=== PATIENT | female | born 1995 | race Caucasian/White ===

== ENCOUNTER → 2016-04-29 | Outpatient (CLI) | payer MEDICAID | LOC: M LAB 13:11 | PROVIDERS: ATTEND Obstetrics & Gynecology | DX: N91.1 Secondary amenorrhea (principal) ==

== ENCOUNTER → 2016-06-10 | Outpatient (CLI) | payer MEDICAID, OTHER | LOC: M LAB 11:57 | PROVIDERS: ATTEND Obstetrics & Gynecology | DX: N91.1 Secondary amenorrhea (principal) ==

== ENCOUNTER → 2016-07-08 | Outpatient (CLI) | payer OTHER ==
[2016-07-08 13:40] LABS: HIV SCREEN CENTAUR NEGATIVE (NEGATIVE)
[2016-07-08 14:06] LABS: BASO % 0.1 % (0.0-1.0); EOS # 0.1 K/mm3 (0.0-0.50); EOS % 1.4 % (0.0-3.0); LARGE UNSTAINED CELL # 0.2 K/mm3 (0.0-0.4); LARGE UNSTAINED CELL % 1.6 % (0.0-4.0); LYMPH # 2.3 K/mm3 (1.5-6.5); LYMPH % 20.6 % (24.0-44.0); MEAN CORPUSCULAR HEMOGLOBIN 29.5 pg (27.0-33.0); MEAN CORPUSCULAR HGB CONC 33.3 g/dl (32.0-36.5); MEAN CORPUSCULAR VOLUME 88.4 fl (80.0-96.0); MONO # 0.5 K/mm3 (0.0-0.8); MONO % 4.5 % (0.0-5.0); NEUTROPHILS # 7.3 K/mm3 (1.8-7.7); NEUTROPHILS % 71.8 % (36.0-66.0); PLATELET COUNT, AUTOMATED 366 k/mm3 (150-450); RED CELL DISTRIBUTION WIDTH 12.9 % (11.5-14.5)
[2016-07-11 10:18] LABS: HBsAg Prenatal NEGATIVE (NEGATIVE)
[2016-07-11 10:18] LABS: WHITE BLOOD COUNT 10.2 K/mm3 (4.0-10.0)
== END ==
LOC: M LAB 11:33
PROVIDERS: ATTEND Advanced Practice Midwife
DX: Z34.81 Encounter for supervision of other normal pregnancy, first trimester (principal); Z36 Encounter for antenatal screening of mother

== ENCOUNTER → 2016-09-28 | Outpatient (CLI) | payer OTHER | LOC: M SMT 11:03 | PROVIDERS: ATTEND Advanced Practice Midwife | DX: Z36 Encounter for antenatal screening of mother (principal); Z13.79 Encounter for other screening for genetic and chromosomal anomalies ==

== ENCOUNTER → 2016-10-03 | Outpatient (CLI) | payer OTHER ==
[~2016-10-03] MED LIST: PRENTAB9 PO
--- NOTE | 2016-10-04 03:54 | REP ---
Clinical: Anatomical evaluation. Comparison: None . Findings: Examination demonstrates a single live intrauterine in cephalic presentation. motion is identified by technologist. Placenta is noted posteriorly and grade zero without evidence for placenta previa or abruption. Amniotic fluid volume is normal. Cervix measures 5.3 cm in length and appears closed. No evidence for nuchal cord. Gestational age by LMP 19 weeks 3 days with VENU 02/24/2017 . Gestational age by current measurements 19 weeks 0 days with VENU 02/27/2017 . FHR equals 137 beats per minute. BPD 4.2 cm 18 weeks 5 days HC 16.1 cm 18 weeks 6 days AC 13.7 cm 19 weeks 1 day FL 2.9 cm 18 weeks 6 days HL 2.9 cm 19 weeks 2 days HC/AC ratio 1.18 Estimated weight 269 grams ( 32nd percentile). Anatomical assessment demonstrates normal structures including cranium, choroid plexus, cavum, cerebellum/posterior fossa, facial features, lungs, diaphragm, stomach, cord insertion/three-vessel cord, kidneys/bladder, spine, and extremities. Limited evaluation of the heart/ventricular outflow tracts noted. Impression: 1. Single live intrauterine in cephalic presentation demonstrating appropriate interval growth. 2. Limited evaluation of the heart and ventricular outflow tracts may warrant reevaluation and follow-up. Signed by Chava Stubbs MD 10/04/2016 03:45 A
== END ==
LOC: M RAD 14:07
PROVIDERS: ATTEND Advanced Practice Midwife
DX: Z34.82 Encounter for supervision of other normal pregnancy, second trimester (principal); Z36 Encounter for antenatal screening of mother; Z3A.18 18 weeks gestation of pregnancy

== ENCOUNTER 2016-10-12 20:32 | Outpatient (CLI) | payer OTHER ==
[~2016-10-12] VITALS: Ht 149.9 cm; Wt 95.0 kg
[2016-10-12] MEDS ORDERED: PRENTAB9 PO (20:40)
[2016-10-12 21:09] VITALS: BP 101/51
== END 2016-10-12 21:30 | disposition home or self-care (01) ==
LOC: M LDO 20:32
PROVIDERS: ATTEND Advanced Practice Midwife
DX: O26.892 Other specified pregnancy related conditions, second trimester (principal); R10.31 Right lower quadrant pain; R10.2 Pelvic and perineal pain; Z3A.20 20 weeks gestation of pregnancy; Z88.2 Allergy status to sulfonamides

== ENCOUNTER → 2016-10-26 | Outpatient (REF) | payer OTHER | LOC: M LAB REF 17:45 | PROVIDERS: ATTEND Advanced Practice Midwife | DX: Z34.82 Encounter for supervision of other normal pregnancy, second trimester (principal); Z36 Encounter for antenatal screening of mother ==

== ENCOUNTER → 2016-10-27 | Outpatient (REF) | payer OTHER | LOC: M LAB REF 16:18 | PROVIDERS: ATTEND Physician Assistant | DX: H65.01 Acute serous otitis media, right ear (principal) ==

== ENCOUNTER → 2016-11-04 | Outpatient (CLI) | payer OTHER ==
--- NOTE | 2016-11-04 12:20 | REP ---
OB ULTRASOUND: Real-time sonographic evaluation of the gravid uterus is performed. There is a single living intrauterine gestation with an estimated gestational age of 24 weeks 0 days based on LMP with EDC 02/24/2017. Biometry and Growth: BPD 57 mm = 23 weeks 3 days, 35th percentile HC 216 mm = 23 weeks 4 days, 38th percentile AC 193 mm = 24 weeks 0 days, 50th percentile FL 41 mm = 23 weeks 2 days, 31st percentile HC/AC ratio 1.12 within normal range. Estimated weight 615 grams, 35th percentile. SEEN/GROSSLY UNREMARKABLE Lateral ventricles Yes Posterior fossa Yes Upper lip Yes Four-chamber heart No LVOT Yes RVOT Yes Stomach Yes Cord insertion Yes Three vessel cord Yes Kidneys Yes Bladder Yes Spine Yes Cervical length: Closed and measures 5.2 cm in length. heart rate: 141 beats per minute. position: Vertex. Placenta: Posterior and grade 0 with no previa or abruption. Amniotic fluid: Within normal limits. Signed by Bishop Calvert MD 11/04/2016 12:21 P
== END ==
LOC: M RAD 10:45
PROVIDERS: ATTEND Advanced Practice Midwife
DX: Z34.82 Encounter for supervision of other normal pregnancy, second trimester (principal); Z36 Encounter for antenatal screening of mother; Z3A.24 24 weeks gestation of pregnancy

== ENCOUNTER → 2016-11-09 | Outpatient (REF) | payer OTHER | LOC: M LAB REF 13:05 | PROVIDERS: ATTEND Advanced Practice Midwife | DX: Z34.82 Encounter for supervision of other normal pregnancy, second trimester (principal); Z36 Encounter for antenatal screening of mother ==

== ENCOUNTER → 2016-11-23 | Outpatient (CLI) | payer OTHER ==
[2016-11-23 13:26] LABS: MEAN CORPUSCULAR HEMOGLOBIN 30.9 pg (27.0-33.0); MEAN CORPUSCULAR HGB CONC 33.3 g/dl (32.0-36.5); MEAN CORPUSCULAR VOLUME 92.6 fl (80.0-96.0); RED CELL DISTRIBUTION WIDTH 13.6 % (11.5-14.5); WHITE BLOOD COUNT 10.4 K/mm3 (4.0-10.0)
== END ==
LOC: M SMT 10:18
PROVIDERS: ATTEND Advanced Practice Midwife
DX: Z34.82 Encounter for supervision of other normal pregnancy, second trimester (principal); Z36 Encounter for antenatal screening of mother

== ENCOUNTER → 2016-12-05 | Outpatient (CLI) | payer OTHER ==
--- NOTE | 2016-12-05 14:17 | REP ---
OB ULTRASOUND: Real-time sonographic evaluation of gravid uterus performed. There is a single living intrauterine gestation. The estimated gestational age is 28 weeks 3 days, EDC 02/24/2017. Today's measurements indicate appropriate growth. BPD 72 mm = 29 weeks 0 days, 61st percentile HC 264 mm = 28 weeks 5 days, 58th percentile AC 242 mm = 28 weeks 3 days, 51st percentile Femur length 55 mm = 28 weeks 6 days, 61st percentile HC/AC ratio 1.09 within normal range. Estimated weight 1263 grams, 48th percentile. Cervix closed 4 cm in length. heart rate 139 beats per minute. Amniotic fluid within normal limits, CAMILA 16.3 within normal range of 9.3-22.9. S/D ratio 2.95 within normal range. RI 0.66 within normal range. SEEN/GROSSLY UNREMARKABLE Lateral ventricles No Posterior fossa Yes Upper lip Yes Four-chamber heart Yes LVOT Yes RVOT No Stomach Yes Cord insertion No Three vessel cord No Kidneys Yes Bladder Yes Spine Yes position: Vertex. Placenta: Posterior and grade 1 with no previa or abruption. Signed by Bishop Calvert MD 12/05/2016 04:09 P
== END ==
LOC: M RAD 11:16
PROVIDERS: ATTEND Advanced Practice Midwife
DX: Z34.82 Encounter for supervision of other normal pregnancy, second trimester (principal); Z36 Encounter for antenatal screening of mother; Z3A.28 28 weeks gestation of pregnancy

== ENCOUNTER → 2016-12-08 | Outpatient (REF) | payer OTHER | LOC: M LAB REF 13:06 | PROVIDERS: ATTEND Advanced Practice Midwife | DX: Z34.82 Encounter for supervision of other normal pregnancy, second trimester (principal); Z36 Encounter for antenatal screening of mother ==

== ENCOUNTER 2016-12-13 19:36 | Outpatient (CLI) | payer OTHER ==
[~2016-12-13] VITALS: Ht 149.9 cm; Wt 92.0 kg
[2016-12-13 19:45] VITALS: BP 115/59
== END 2016-12-13 20:48 | disposition home or self-care (01) ==
LOC: M LDO 19:36
PROVIDERS: ATTEND Advanced Practice Midwife
DX: O36.8130 Decreased fetal movements, third trimester, not applicable or unspecified (principal); Z3A.29 29 weeks gestation of pregnancy; Z88.2 Allergy status to sulfonamides

== ENCOUNTER 2016-12-26 11:54 | Outpatient (CLI) | payer OTHER ==
[~2016-12-26] VITALS: Ht 149.9 cm; Wt 97.0 kg
[2016-12-26 12:23] VITALS: BP 124/58
== END 2016-12-26 14:35 | disposition home or self-care (01) ==
LOC: M LDO 11:54
PROVIDERS: ATTEND Obstetrics & Gynecology
DX: O26.853 Spotting complicating pregnancy, third trimester (principal); Z3A.31 31 weeks gestation of pregnancy; Z88.2 Allergy status to sulfonamides

== ENCOUNTER → 2017-01-24 | Outpatient (CLI) | payer OTHER ==
--- NOTE | 2017-01-25 04:05 | REP ---
Clinical: Growth evaluation. Comparison: 12/05/2016 . Findings: Examination demonstrates a single live intrauterine in cephalic presentation. motion is identified by technologist. Placenta is noted posteriorly and grade II without evidence for placenta previa or abruption. Amniotic fluid volume is normal. Cervix measures 3.3 cm in length and appears closed. No evidence for nuchal cord. Gestational age by LMP 35 weeks 4 days with VENU 02/24/2017 . Gestational age by current measurements 36 weeks 2 days with VENU 02/19/2017 . FHR equals 133 beats per minute. BPD 8.8 cm of 35 weeks 4 days HC 33.0 37 weeks 4 days AC 31.9 35 weeks 6 days FL 7.2 36 weeks 6 days HL 6.1 35 weeks 2 days HC/AC ratio 1.03 Estimated weight 2890 grams ( 61st percentile). Impression: Single live advanced gestation in cephalic presentation demonstrating appropriate interval growth. No gross abnormalities are identified. Estimated weight within normal range. Signed by Chava Stubbs MD 01/25/2017 03:56 A
== END ==
LOC: M RAD 11:29
PROVIDERS: ATTEND Advanced Practice Midwife
DX: O99.213 Obesity complicating pregnancy, third trimester (principal); E66.9 Obesity, unspecified; Z3A.35 35 weeks gestation of pregnancy

== ENCOUNTER → 2017-01-27 | Outpatient (REF) | payer OTHER | LOC: M LAB REF 13:23 | PROVIDERS: ATTEND Advanced Practice Midwife | DX: Z34.83 Encounter for supervision of other normal pregnancy, third trimester (principal); Z36.85 Encounter for antenatal screening for Streptococcus B ==

== ENCOUNTER → 2017-02-03 | Outpatient (REF) | payer OTHER | LOC: M LAB REF 16:55 | PROVIDERS: ATTEND Obstetrics & Gynecology | DX: Z34.83 Encounter for supervision of other normal pregnancy, third trimester (principal); Z36.9 Encounter for antenatal screening, unspecified ==

== ENCOUNTER 2017-02-26 23:12 | Outpatient (CLI) | payer OTHER ==
[~2017-02-26] VITALS: Ht 149.9 cm; Wt 101.0 kg
== END 2017-02-27 00:20 | disposition home or self-care (01) ==
LOC: M LDO 23:12
PROVIDERS: ATTEND Specialist
DX: O47.1 False labor at or after 37 completed weeks of gestation (principal); Z3A.40 40 weeks gestation of pregnancy; Z88.2 Allergy status to sulfonamides

== ENCOUNTER 2017-03-03 14:35 | Inpatient (IN) | payer OTHER ==
[2017-03-03] VITALS (15 sets, daily range): BP systolic 98–126; BP diastolic 48–89
[~2017-03-03] VITALS: Ht 149.9 cm; Wt 10.0 kg
[2017-03-03 16:04] LABS: BASO % 0.2 % (0.0-1.0); EOS # 0.1 10^3/uL (0.0-0.50); EOS % 0.7 % (0.0-3.0); IMMATURE GRANULOCYTE % 0.6 % (0-0); LYMPH # 2.2 10^3/uL (1.5-6.5); LYMPH % 22.6 % (24.0-44.0); MEAN CORPUSCULAR HEMOGLOBIN 27.5 pg (27.0-33.0); MEAN CORPUSCULAR VOLUME 85.8 fl (80.0-96.0); MONO # 0.8 10^3/uL (0.0-0.8); MONO % 8.1 % (0.0-5.0); NEUTROPHILS # 6.6 10^3/uL (1.8-7.7); NEUTROPHILS % 67.8 % (36.0-66.0); PLATELET COUNT, AUTOMATED 274 10^3/uL (150-450); WHITE BLOOD COUNT 9.7 10^3/uL (4.0-10.0)
[2017-03-03] MEDS ORDERED: OXYTOCIN 30 UNITS IN 0.9% NaCl 500ML IV BAG (J2590) As Ordered ONE (16:27)
[2017-03-03] MEDS ORDERED: OXYTOCIN DRIP 30 UNITS in APPROPRIATE DILUENT 1 EA IV SCH (16:30)
--- NOTE | 2017-03-03 16:57 | HPE ---
DATE OF ADMISSION: 03/03/2017 REASON FOR ADMISSION: Induction of labor. HISTORY OF THE PRESENT ILLNESS: Ms. Gonzales is a 21-year-old 1 who presents at 41 weeks and 0 days estimated gestational age by her last menstrual period, confirmed by a first trimester ultrasound for induction of labor. Her course has been unremarkable. She initiated care in her first trimester and has been appropriate throughout. PAST MEDICAL HISTORY: None. PAST SURGICAL HISTORY: None. PAST OBSTETRICAL HISTORY: She is a 1. MEDICATIONS: Her medications include vitamins. ALLERGIES: She has allergies to SULFA. SOCIAL HISTORY: Denies any alcohol, tobacco or drug use during her . PHYSICAL EXAMINATION: Her vital signs are stable. She is afebrile. She has a category 1 heart rate tracing. General appearance is well appearing. No acute distress. Her lungs are clear to auscultation bilaterally. Cardiovascular: Heart regular rate and rhythm. Her abdomen is gravid, estimated weight 3700 grams. Cervical Exam: She was 3 cm dilated, 80% effaced, -3 station. LABORATORY: Blood type is O positive. Antibody screen is negative. Rubella is immune. RPR is nonreactive. Hepatitis surface antigen is negative. HIV is negative. Hepatitis C is nonreactive. Chlamydia and gonorrhea screens are negative. She had a normal 1-hour Glucola, and she is GBS negative. ASSESSMENT: 1. Ms. Gonzales is a 21-year-old 1 at 41 weeks 0 days estimated gestational age, here for induction of labor for postdates. 2. Reassuring status. PLAN: 1. Admit to labor and delivery. CBC, RPR, type and screen. 2. Patient thoroughly counseled in regards to induction of labor. I have discussed medications, as well as procedures performed in labor and delivery. She has also been verbally consented for emergency surgery, blood products, anesthesia and desires to proceed with admission. 3. Will start induction with Pitocin.
[2017-03-03] MEDS: LR 1,000 ML IV SCH (18:14)
[2017-03-03] MEDS ORDERED: BUTORPHANOL 2 MG/ML INJ (J0595) IV ONE (22:45)
[2017-03-03] MEDS ORDERED: PROMETHAZINE INJ 25 MG/ML VIAL (J2550) IV PRN (22:45)
[2017-03-04] VITALS (44 sets, daily range): BP systolic 85–148; BP diastolic 48–87
[2017-03-04] MEDS ORDERED: OXYTOCIN DRIP 30 UNITS in APPROPRIATE DILUENT 1 EA IV SCH (01:30)
[2017-03-04] MEDS ORDERED: miSOPROStol 50 MCG 1/2 TAB (S0191) PO SCH ×2 (01:30→04:45)
[2017-03-04] MEDS ORDERED: ACETAMINOPHEN 500 MG TAB PO PRN (02:30)
[2017-03-04] MEDS: LR 1,000 ML IV SCH ×4 (07:24→21:14)
[2017-03-04] MEDS ORDERED: FENTANYL 2MCG/ML ROPIVACAINE 0.2% IN 0.9% NACL 200ML IVBAG As Ordered ONE (15:44)
[2017-03-04] MEDS ORDERED: ONDANSETRON 4MG/2ML VIAL (J2405) As Ordered ONE ×2 (15:58→20:27)
[2017-03-04] MEDS ORDERED: ePHEDrine SULFATE 25 MG/5 ML(5MG/ML) SYRINGE IV PRN (16:45)
[2017-03-04] MEDS ORDERED: diphenhydrAMINE INJ 50MG/ML VIAL (J1200) IV PRN (16:45)
[2017-03-04] MEDS ORDERED: LACTATED RINGER'S 1000 ML IV PRN (16:45)
[2017-03-04] MEDS ORDERED: REFRIGERATOR IV KEYS XX PRN (16:45)
[2017-03-04] MEDS ORDERED: EPIDURAL/PCA KEYS XX PRN (16:45)
[2017-03-04] MEDS ORDERED: FENTANYL/ROPIVACAINE/NACL BAG 200 ML EPIDURAL SCH (16:45)
[2017-03-04] MEDS ORDERED: EPIDURAL COMMENT XX SCH (16:45)
[2017-03-04] MEDS ORDERED: NALOXONE INJ 0.4 MG/1 ML VIAL (J2310) IV PRN ×3 (16:45→20:45)
[2017-03-04] MEDS ORDERED: ONDANSETRON 4MG/2ML VIAL (J2405) IV PRN ×2 (16:45→21:15)
[2017-03-04] MEDS ORDERED: ONDANSETRON 4MG/2ML VIAL (J2405) IV ONE (17:15)
[2017-03-04] MEDS ORDERED: BICITRA 30ML SOLN UDC PO ONE (19:30)
[2017-03-04] MEDS ORDERED: LIDOCAINE PRES-FREE 2% 10ML AMP As Ordered ONE (20:00)
[2017-03-04] MEDS ORDERED: KETOROLAC 60 MG/2 ML VIAL (J1885) As Ordered ONE (20:27)
[2017-03-04] MEDS ORDERED: OXYTOCIN INJ 10 UNITS/ML VIAL (J2590) As Ordered ONE (20:32)
[2017-03-04] MEDS ORDERED: MORPHINE PRES-FREE INJ 10 MG/10 ML VIAL (J2274) As Ordered ONE (20:35)
[2017-03-04] MEDS ORDERED: NALBUPHINE HCL 10 MG/ML AMP (J2300) IV PRN (20:45)
[2017-03-04] MEDS ORDERED: METOCLOPRAMIDE INJ 10MG/2ML VIAL (J2765) IV PRN (20:45)
[2017-03-04] MEDS ORDERED: MEPERIDINE 50 MG/ML 1ML VIAL (J2175) As Ordered ONE (20:50)
[2017-03-04] MEDS ORDERED: RHOGAM 300 MCG (1500 IU) INJ (J2790) IM SCH (21:15)
[2017-03-04] MEDS ORDERED: MEASLES,MUMPS,RUBELLA VACCINE INJ (MMR-II) (90707) SC SCH (21:15)
[2017-03-04] MEDS ORDERED: PERCOCET 5MG/325MG TAB PO PRN (21:15)
[2017-03-04] MEDS ORDERED: DOCUSATE SODIUM 100 MG CAP PO PRN (21:15)
[2017-03-04] MEDS ORDERED: OXYTOCIN DRIP 30 UNITS in APPROPRIATE DILUENT 1 EA IV ONE (21:15)
[2017-03-04] MEDS ORDERED: MOM 30ML SUSPENSION UDC PO PRN (21:15)
[2017-03-04] MEDS ORDERED: fentaNYL 100 MCG/2 ML INJECTION (J3010) IV PRN (21:30)
[2017-03-04] MEDS: PERCOCET 5MG/325MG TAB PO PRN (23:53)
[2017-03-05] VITALS (8 sets, daily range): BP systolic 100–123; BP diastolic 52–62
[2017-03-05] MEDS: KETOROLAC 30 MG/ML VIAL (J1885) IV SCH ×4 (02:11→21:42)
--- NOTE | 2017-03-05 06:14 | RO ---
DATE OF OPERATION: 03/04/2017 PREOPERATIVE DIAGNOSIS: Arrest of dilation. POSTOPERATIVE DIAGNOSIS: Arrest of dilation. PROCEDURE PERFORMED: Primary lower transverse section. SURGEON: Claudia Mcmillan MD ASSISTANTS: Eligio Lewis MD ANESTHESIA: Epidural. ESTIMATED BLOOD LOSS: 600 mL. INTRAVENOUS FLUIDS: 1100 mL of lactated Ringer solution. URINE OUTPUT: 125 mL. PREOPERATIVE ANTIBIOTICS: 2 grams of Ancef. SPECIMENS: Cord blood. OPERATIVE FINDINGS: Liveborn female , score 8/9 and weight was 8 pounds 7 ounces or 3830 grams. DESCRIPTION OF OPERATION: After informed consent was obtained and written consent was reviewed, the patient was brought to the operating room where she was prepped and draped in a normal sterile fashion. A Fischer catheter that had previously been set was placed and set to gravity. A time-out in operating room was then performed, identifying the patient, procedure to be performed, as well as drug allergies. Anesthesia was tested and deemed to be adequate. A Pfannenstiel skin incision was then made and carried down to the underlying rectus fascia. The fascia was scored and this incision was extended bilaterally. The fascia was then dissected off the underlying rectus muscles both superiorly and inferiorly. The rectus muscles were the in the midline. The peritoneum was then entered. The vesicouterine peritoneum was then identified, was tented and excised to create a bladder flap. A bladder blade was then placed to retract back the bladder. A curvilinear incision was then made in the lower uterine segment. Uterine incision was then extended. head was brought to the level of the incision atraumatically, followed delivery of the shoulders and corpus. Cord was clamped times two. Infant was brought over taken over to the warmer with a good cry. Cord blood was obtained. Placenta was then delivered grossly intact. The uterus was then exteriorized and cleared of all clots and debris. The uterine incision was then closed in two layers using #0 Vicryl, first layer in a running locking fashion, followed by a second layer for imbrication in a running nonlocking fashion. The abdomen was suctioned. The uterus was returned to the patient's abdomen. Uterine incisions were inspected and also noted to be hemostatic. The anterior peritoneum was then reapproximated with #3-0 Vicryl. Rectus muscles were then reapproximated with #3-0 Vicryl. The fascia was then closed with #0 Vicryl in a running nonlocking fashion. The subcutaneous tissue was then irrigated and suctioned. Subcutaneous tissue was then reapproximated. Several subdermal stitches were placed with #3-0 Vicryl and the skin was closed with #4-0 Monocryl in a subcuticular fashion. The incision was then cleaned and dry. Mastisol was applied above and below the incision. Steri-Strips were applied over the incision. The incision was then dressed. The patient was then taken to recovery in stable condition. Counts were correct.
[2017-03-05 07:05] LABS: MEAN CORPUSCULAR HEMOGLOBIN 27.1 pg (27.0-33.0); MEAN CORPUSCULAR HGB CONC 31.4 g/dl (32.0-36.5); MEAN CORPUSCULAR VOLUME 86.1 fl (80.0-96.0); PLATELET COUNT, AUTOMATED 225 10^3/uL (150-450); RED CELL DISTRIBUTION WIDTH 15.2 % (11.5-14.5); WHITE BLOOD COUNT 12.4 10^3/uL (4.0-10.0)
[2017-03-05] MEDS: LR 1,000 ML IV SCH ×2 (08:39→13:49)
[2017-03-05] MEDS: PRENATAL VITAMINS CHEWABLE TABLET PO SCH (08:39)
[2017-03-05] MEDS: FERROUS SULFATE 325MG TAB PO SCH (08:39)
[2017-03-05] MEDS ORDERED: IBUP1TAB7 PO (08:48)
[2017-03-05] MEDS ORDERED: PERCOCET PO (08:49)
[2017-03-05] MEDS: PERCOCET 5MG/325MG TAB PO PRN (13:46)
[2017-03-06] MEDS: PERCOCET 5MG/325MG TAB PO PRN (04:12)
[2017-03-06] MEDS ORDERED: IBUPROFEN 800 MG TAB PO SCH (05:30)
[2017-03-06 06:15] VITALS: BP 113/68
[2017-03-06] MEDS: PRENATAL VITAMINS CHEWABLE TABLET PO SCH (08:29)
[2017-03-06] MEDS: FERROUS SULFATE 325MG TAB PO SCH (08:29)
[2017-03-06] MEDS ORDERED: OXYC1TAB23 PO (09:39)
[2017-03-06] MEDS ORDERED: MILKSUS PO (09:39)
[2017-03-06] MEDS ORDERED: FERR1TAB8 PO (09:39)
[2017-03-06] MEDS ORDERED: COLA100C5 PO (09:39)
== END 2017-03-06 11:20 | disposition home or self-care (01) | DRG 540 ==
LOC: M LDI 14:35 → M OBS 03-04 23:00
PROVIDERS: ADMIT Obstetrics & Gynecology; ATTEND Obstetrics & Gynecology
PROC: 3E033VJ Introduction of Other Hormone into Peripheral Vein, Percutaneous Approach (ICD-10-PCS; 2017-03-04)
PROC: 10D00Z1 Extraction of Products of Conception, Low, Open Approach (ICD-10-PCS; principal; 2017-03-04 19:55)
DX: O48.0 Post-term pregnancy (principal); O62.0 Primary inadequate contractions; Z37.0 Single live birth; Z3A.41 41 weeks gestation of pregnancy; Z88.2 Allergy status to sulfonamides

== ENCOUNTER → 2017-10-30 | Outpatient (CLI) | payer OTHER ==
[2017-10-30 16:01] LABS: BASO % 0.1 % (0.0-1.0); EOS # 0.1 10^3/uL (0.0-0.50); EOS % 1.1 % (0.0-3.0); HEMATOCRIT 31.8 % (36.0-47.0); HEMOGLOBIN 10.6 g/dl (12.0-15.5); IMMATURE GRANULOCYTE % 0.4 % (0-3.0); LYMPH # 2.2 10^3/uL (1.5-6.5); LYMPH % 21.5 % (24.0-44.0); MEAN CORPUSCULAR HEMOGLOBIN 28.9 pg (27.0-33.0); MEAN CORPUSCULAR HGB CONC 33.3 g/dl (32.0-36.5); MEAN CORPUSCULAR VOLUME 86.6 fl (80.0-96.0); MONO # 0.7 10^3/uL (0.0-0.8); MONO % 6.7 % (0.0-5.0); NEUTROPHILS % 70.2 % (36.0-66.0); PLATELET COUNT, AUTOMATED 269 10^3/uL (150-450); RED BLOOD COUNT 3.67 10^6/uL (4.00-5.40); RED CELL DISTRIBUTION WIDTH 14.9 % (11.5-14.5)
[2017-10-30 17:21] LABS: CHLAMYDIA DNA AMPLIFICATION NEGATIVE (NEGATIVE); GC DNA AMPLIFICATION NEGATIVE (NEGATIVE)
[2017-11-01 09:15] LABS: RUBELLA IgG QUALITATIVE IMMUNE (IMMUNE)
[2017-11-01 09:31] LABS: HBsAg Prenatal NEGATIVE (NEGATIVE)
[2017-11-01 09:45] LABS: HEPATITIS C VIRUS ABY INDEX < 0.0 INDEX (<0.8)
[2017-11-01 09:46] LABS: HIV 1&2 SCREEN CENTAUR NEGATIVE (NEGATIVE)
== END ==
LOC: M LAB 15:08
DX: Z34.81 Encounter for supervision of other normal pregnancy, first trimester (principal); Z3A.10 10 weeks gestation of pregnancy
CPT/HCPCS: 86762

== ENCOUNTER → 2017-11-23 | Outpatient (CLI) | payer OTHER | LOC: M SMT 13:38 | DX: Z36.89 Encounter for other specified antenatal screening (principal) | CPT/HCPCS: 36415 ==

== ENCOUNTER → 2017-11-28 | Outpatient (REF) | payer OTHER | LOC: M LAB REF 13:07 | DX: Z34.82 Encounter for supervision of other normal pregnancy, second trimester (principal); Z3A.00 Weeks of gestation of pregnancy not specified | CPT/HCPCS: 87186 ==

== ENCOUNTER → 2017-12-04 | Outpatient (CLI) | payer OTHER | LOC: M RAD 14:24 | DX: O34.211 Maternal care for low transverse scar from previous cesarean delivery (principal); Z3A.18 18 weeks gestation of pregnancy | CPT/HCPCS: 76811 ==

== ENCOUNTER → 2017-12-27 | Outpatient (REF) | payer OTHER | LOC: M LAB REF 09:14 | DX: Z34.82 Encounter for supervision of other normal pregnancy, second trimester (principal); Z36.89 Encounter for other specified antenatal screening | CPT/HCPCS: 87086 ==

== ENCOUNTER → 2017-12-28 | Outpatient (CLI) | payer OTHER | LOC: M RAD 08:38 | DX: Z36.9 Encounter for antenatal screening, unspecified (principal); O34.219 Maternal care for unspecified type scar from previous cesarean delivery; Z3A.22 22 weeks gestation of pregnancy | CPT/HCPCS: 76816 ==

== ENCOUNTER → 2018-01-24 | Outpatient (REF) | payer OTHER | LOC: M LAB REF 12:48 | DX: O34.219 Maternal care for unspecified type scar from previous cesarean delivery (principal) ==

== ENCOUNTER → 2018-01-24 | Outpatient (CLI) | payer OTHER ==
[2018-01-24 13:14] LABS: HEMATOCRIT 31.1 % (36.0-47.0); HEMOGLOBIN 9.8 g/dl (12.0-15.5); MEAN CORPUSCULAR HEMOGLOBIN 29.7 pg (27.0-33.0); MEAN CORPUSCULAR HGB CONC 31.5 g/dl (32.0-36.5); MEAN CORPUSCULAR VOLUME 94.2 fl (80.0-96.0); PLATELET COUNT, AUTOMATED 262 10^3/uL (150-450); RED CELL DISTRIBUTION WIDTH 15.2 % (11.5-14.5); WHITE BLOOD COUNT 9.4 10^3/uL (4.0-10.0)
[2018-01-24 13:51] LABS: GLUCOSE CHALLENGE TEST 1 HOUR 76 MG/DL (LESS THAN 140)
== END ==
LOC: M SMT 08:03
DX: O34.219 Maternal care for unspecified type scar from previous cesarean delivery (principal)
CPT/HCPCS: 82950

== ENCOUNTER → 2018-03-30 | Outpatient (CLI) | payer OTHER ==
[2018-03-30 15:38] LABS: HEMATOCRIT 33.1 % (36.0-47.0); HEMOGLOBIN 10.6 g/dl (12.0-15.5); MEAN CORPUSCULAR HEMOGLOBIN 28.9 pg (27.0-33.0); MEAN CORPUSCULAR VOLUME 90.2 fl (80.0-96.0); PLATELET COUNT, AUTOMATED 269 10^3/uL (150-450); RED BLOOD COUNT 3.67 10^6/uL (4.00-5.40); RED CELL DISTRIBUTION WIDTH 14.6 % (11.5-14.5); WHITE BLOOD COUNT 10.1 10^3/uL (4.0-10.0)
== END ==
LOC: M LAB 15:20
DX: O99.013 Anemia complicating pregnancy, third trimester (principal)
CPT/HCPCS: 85027

== ENCOUNTER → 2018-04-06 | Outpatient (REF) | payer OTHER ==
[~2018-04-06] MED LIST changes: +COLA100C5 PO; +FERR1TAB8 PO; +IBUP-1114 PO; +IBUP1TAB7 PO; +MILK120011 PO; +OXYC1TAB23 PO; +PERCOCET PO
== END ==
LOC: M LAB REF 17:00
PROVIDERS: ATTEND Obstetrics & Gynecology
DX: Z34.83 Encounter for supervision of other normal pregnancy, third trimester (principal)

== ENCOUNTER 2018-04-20 07:30 | Inpatient (IN) | payer OTHER ==
[~2018-04-20] VITALS: Ht 149.9 cm; Wt 105.9 kg
[~2018-04-20 07:30] MED LIST changes: -IBUP-1114 PO
[2018-04-23] VITALS (8 sets, daily range): BP systolic 101–129; BP diastolic 53–65
[2018-04-23] MEDS ORDERED: LACTATED RINGER'S 1000 ML IV ONE (06:00)
[2018-04-23] MEDS ORDERED: BICITRA 30ML SOLN UDC PO ONE (06:00)
[2018-04-23] MEDS: LR 1,000 ML IV SCH ×2 (06:29→07:30)
[2018-04-23 06:38] LABS: HEMATOCRIT 34.3 % (36.0-47.0); HEMOGLOBIN 11.1 g/dl (12.0-15.5); MEAN CORPUSCULAR HGB CONC 32.4 g/dl (32.0-36.5); MEAN CORPUSCULAR VOLUME 89.6 fl (80.0-96.0); PLATELET COUNT, AUTOMATED 230 10^3/uL (150-450); RED BLOOD COUNT 3.83 10^6/uL (4.00-5.40); WHITE BLOOD COUNT 8.8 10^3/uL (4.0-10.0)
[2018-04-23] MEDS ORDERED: OXYTOCIN INJ 10 UNITS/ML VIAL (J2590) As Ordered ONE (07:10)
[2018-04-23] MEDS ORDERED: MORPHINE PRES-FREE INJ 10 MG/10 ML VIAL (J2274) As Ordered ONE (07:13)
[2018-04-23] MEDS ORDERED: METOCLOPRAMIDE INJ 10MG/2ML VIAL (J2765) IV PRN (08:06)
[2018-04-23] MEDS ORDERED: NALOXONE INJ 0.4 MG/1 ML VIAL (J2310) IV PRN ×2 (08:06)
[2018-04-23] MEDS ORDERED: diphenhydrAMINE INJ 50MG/ML VIAL (J1200) IV PRN (08:06)
[2018-04-23] MEDS ORDERED: ONDANSETRON 4MG/2ML VIAL (J2405) IV PRN ×3 (08:06→09:30)
[2018-04-23] MEDS ORDERED: NALBUPHINE HCL 10 MG/ML AMP (J2300) IV PRN ×2 (08:06→09:30)
[2018-04-23] MEDS ORDERED: ePHEDrine SULFATE 25 MG/5 ML(5MG/ML) SYRINGE As Ordered ONE (08:27)
[2018-04-23] MEDS ORDERED: PHENYLephrine HCL 500 MCG/5 ML (100MCG/ML) SYRINGE (J2370) As Ordered ONE (08:27)
[2018-04-23] MEDS ORDERED: ONDANSETRON 4MG/2ML VIAL (J2405) As Ordered ONE (08:28)
[2018-04-23] MEDS ORDERED: KETOROLAC 60 MG/2 ML VIAL (J1885) As Ordered ONE (08:28)
[2018-04-23] MEDS: PRENATAL VITAMINS CHEWABLE TABLET PO SCH (09:00)
[2018-04-23] MEDS ORDERED: METHYLERGONOVINE MALEATE 0.2 MG/ML VIAL (J2210) IM PRN (09:15)
[2018-04-23] MEDS ORDERED: MEASLES,MUMPS,RUBELLA VACCINE INJ (MMR-II) (90707) SC SCH (09:15)
[2018-04-23] MEDS ORDERED: PERCOCET 5MG/325MG TAB PO PRN (09:15)
[2018-04-23] MEDS ORDERED: OXYTOCIN DRIP 30 UNITS in APPROPRIATE DILUENT 1 EA IV SCH (09:15)
[2018-04-23] MEDS ORDERED: RHOGAM 300 MCG (1500 IU) INJ (J2790) IM SCH (09:15)
[2018-04-23] MEDS ORDERED: DOCUSATE SODIUM 100 MG CAP PO PRN (09:15)
[2018-04-23] MEDS ORDERED: fentaNYL 100 MCG/2 ML INJECTION (J3010) IV PRN (09:30)
[2018-04-23] MEDS: KETOROLAC 30 MG/ML VIAL (J1885) IV SCH ×2 (13:27→19:56)
[2018-04-24] MEDS: LR 1,000 ML IV SCH (02:04)
[2018-04-24] MEDS: KETOROLAC 30 MG/ML VIAL (J1885) IV SCH (02:04)
[2018-04-24 02:17] VITALS: BP 106/52
[2018-04-24 06:09] VITALS: BP 100/48
[2018-04-24 07:33] LABS: HEMATOCRIT 23.2 % (36.0-47.0); HEMOGLOBIN 7.5 g/dl (12.0-15.5); MEAN CORPUSCULAR HEMOGLOBIN 28.7 pg (27.0-33.0); MEAN CORPUSCULAR HGB CONC 32.3 g/dl (32.0-36.5); MEAN CORPUSCULAR VOLUME 88.9 fl (80.0-96.0); PLATELET COUNT, AUTOMATED 194 10^3/uL (150-450); RED BLOOD COUNT 2.61 10^6/uL (4.00-5.40)
[2018-04-24 10:00] VITALS: BP 118/56
[2018-04-24] MEDS: IBUPROFEN 800 MG TAB PO SCH ×2 (10:00→17:40)
[2018-04-24] MEDS: PERCOCET 5MG/325MG TAB PO PRN ×2 (13:01→17:40)
[2018-04-24 14:00] VITALS: BP 123/66
[2018-04-24 18:00] VITALS: BP 122/62
[2018-04-25] MEDS: IBUPROFEN 800 MG TAB PO SCH ×2 (02:00→10:16)
[2018-04-25] MEDS: PERCOCET 5MG/325MG TAB PO PRN (02:00)
[2018-04-25 05:25] VITALS: BP 107/57
--- NOTE | 2018-04-25 06:48 | DSES ---
DATE OF ADMISSION: 04/23/2018 DATE OF DISCHARGE: 04/25/2018 22-year-old G2, P1 female, 39-3/7 weeks gestation presents for elective repeat section. She has a history of one prior . HOSPITAL COURSE: On 04/23/2018, patient underwent repeat low transverse section. She has no complications. Result of a viable . Her postoperative course was unremarkable. She had adequate return of bladder and bowel function. Her postoperative hemoglobin was stable. She was stable for discharge on postoperative day #2. ADMISSION DIAGNOSIS: , term. Prior section. DISCHARGE DIAGNOSIS: Delivered. PROCEDURE: Repeat low transverse section. DISPOSITION: Patient to followup with Dr. Mcmillan in 2 weeks. Instructions were reviewed. edited: 04/26/2018 0832 tkf MTDD
[2018-04-25] MEDS ORDERED: PERCOCET PO (07:40)
[2018-04-25] MEDS: PRENATAL VITAMINS CHEWABLE TABLET PO SCH ×2 (09:00→10:15)
[2018-04-25] MEDS ORDERED: IBUP-1114 PO (10:39)
[2018-04-25] MEDS ORDERED: OXYC1TAB23 PO (10:40)
--- NOTE | 2018-04-27 09:03 | RO ---
DATE OF PROCEDURE: 04/23/2018 PREPROCEDURE DIAGNOSES: 1. Intrauterine at 39+ weeks. 2. History of prior section for repeat section. POSTPROCEDURE DIAGNOSES: 1. Intrauterine at 39+ weeks. 2. History of prior section for repeat section. PROCEDURE: section. SURGEON: Dr. Claudia Mcmillan. RECEIVING CLERK: Alison Madrigal CNM. ANESTHESIA: Spinal. ESTIMATED BLOOD LOSS: 100 mL. INTRAVENOUS FLUIDS: 1300 mL of lactated Ringers solution. URINE OUTPUT: 125 mL. PREOPERATIVE ANTIBIOTICS: 2 grams of Ancef. OPERATIVE FINDINGS: Live born male , Apgars 9 and 9, weight 7 pounds 15 ounces, 3600 grams. SPECIMENS: Cord blood. DESCRIPTION OF PROCEDURE: After informed consent was obtained and written consent was reviewed, the patient was brought to the operating room where spinal anesthesia was placed. She was then placed in supine position with left lateral tilt. A Fischer catheter was placed and set to gravity. She was then prepped and draped in a normal sterile fashion. Time-out in the operating room was then performed identifying the patient, procedure to be performed as well as drug allergies. Anesthesia was tested and deemed to be adequate. A Pfannenstiel skin incision was then made and carried down to the underlying rectus fascia. The fascia was then scored and this incision was extended bilaterally. The fascia was then dissected off the underlying rectus muscles both superiorly and inferiorly. The rectus muscles were in the midline. The peritoneum was then entered sharply. The vesicouterine peritoneum was then tented and excised to create a bladder flap. The bladder blade was the placed to retract back the bladder. A curvilinear incision was then made in the lower uterine segment amniotomy was then performed productive of clear fluid. head was delivered into the incision atraumatically followed by shoulders and corpus. Corpus was clamped times two and was cut and infant was taken over to the warmer with a good cry. Cord blood was obtained. The placenta was then drained and delivered grossly intact. The uterus was then exteriorized and cleared of all clots and debris. The uterine incision was then closed in two layers using 0 Vicryl first in a running locked fashion followed by the second layer for imbrication in a running locked fashion. [id number] stitch was placed for hemostasis. The abdomen was then suctioned. The uterus was then returned to the patient's abdomen, was re-inspected and noted to be hemostatic. The anterior peritoneum was then reapproximated with #3-0 Vicryl. The rectus muscles were reapproximated with #3-0 Vicryl. The fascia was then closed with 0 Vicryl in a running nonlocking fashion. Subcutaneous tissues was then irrigated and suctioned. Subcutaneous tissue was then approximated with #3-0 Vicryl. Several subdermal stitches were placed with #3-0 Vicryl and the skin was closed with #4-0 Monocryl in a subcuticular fashion. The incision was then cleaned and dry and was dressed. The patient was then taken to the recovery room in stable condition. Counts were correct. Alison Alston CNM my assistant kitchen manager played an essential role during the operating. She assisted with tissue retraction and identification, delivery of the as well as wound closure.
== END 2018-04-25 11:25 | disposition home or self-care (01) | DRG 540 ==
LOC: M LDI 04-23 05:34 → M OBS 04-23 10:20
PROVIDERS: ADMIT Obstetrics & Gynecology; ATTEND Obstetrics & Gynecology
PROC: 10D00Z1 Extraction of Products of Conception, Low, Open Approach (ICD-10-PCS; principal; 2018-04-23 07:30)
DX: O34.211 Maternal care for low transverse scar from previous cesarean delivery (principal); Z37.0 Single live birth; Z3A.39 39 weeks gestation of pregnancy

== ENCOUNTER → 2019-01-10 | Outpatient (CLI) | payer OTHER ==
[~2019-01-10] MED LIST changes: +IBUP-1114 PO
[2019-01-10 17:21] LABS: HCG, SERUM QUALITATIVE NEGATIVE (NEGATIVE)
[2019-01-10 17:31] LABS: FREE T4 1.24 NG/DL (0.76-1.46)
== END ==
LOC: M SMT 15:09
PROVIDERS: ATTEND Advanced Practice Midwife
DX: N91.1 Secondary amenorrhea (principal)

== ENCOUNTER → 2019-06-18 | Outpatient (REF) | payer OTHER ==
[2019-06-18 23:05] LABS: INFLUENZA A AMPLIFICATION POSITIVE (NEGATIVE); INFLUENZA B AMPLIFICATION NEGATIVE (NEGATIVE)
== END ==
LOC: M LAB REF 21:46
PROVIDERS: ATTEND Physician Assistant
DX: J11.1 Influenza due to unidentified influenza virus with other respiratory manifestations (principal)

== ENCOUNTER 2019-08-18 20:06 | Emergency (ER) | payer OTHER ==
[~2019-08-18] VITALS: Ht 149.9 cm; Wt 109.5 kg
[2019-08-18] MEDS ORDERED: ONDANSETRON 4MG/2ML VIAL IV ONE (20:30)
[2019-08-18] MEDS ORDERED: KETOROLAC 30 MG/ML 1ML VIAL IV ONE (20:30)
[2019-08-18] MEDS ORDERED: NS 1,000 ML IV ONE (20:30)
[2019-08-18] MEDS ORDERED: VITA100T59 PO (21:09)
[2019-08-18 21:25] LABS: BASO % 0.2 % (0.0-1.0); EOS # 0.2 10^3/uL (0.0-0.5); HEMATOCRIT 37.5 % (36.0-47.0); HEMOGLOBIN 11.8 g/dl (12.0-15.5); LYMPH # 2.2 10^3/uL (1.5-5.0); LYMPH % 22.6 % (24.0-44.0); MEAN CORPUSCULAR HEMOGLOBIN 28.4 pg (27.0-33.0); MEAN CORPUSCULAR HGB CONC 31.5 g/dl (32.0-36.5); MEAN CORPUSCULAR VOLUME 90.4 fl (80.0-96.0); MONO # 0.5 10^3/uL (0.0-0.8); MONO % 5.1 % (0.0-5.0); NEUTROPHILS # 6.8 10^3/uL (1.5-8.5); NEUTROPHILS % 69.8 % (36.0-66.0); PLATELET COUNT, AUTOMATED 309 10^3/uL (150-450); RED BLOOD COUNT 4.15 10^6/uL (4.00-5.40); WHITE BLOOD COUNT 9.8 10^3/uL (4.0-10.0)
[2019-08-18 22:14] LABS: ALBUMIN 3.6 GM/DL (3.2-5.2); ALT/SGPT 25 U/L (12-78); BILIRUBIN,DIRECT 0.1 MG/DL (0.0-0.2); BILIRUBIN,TOTAL 0.3 MG/DL (0.2-1.0); BLOOD UREA NITROGEN 20 MG/DL (7-18); CARBON DIOXIDE LEVEL 25 MEQ/L (21-32); CHLORIDE LEVEL 106 MEQ/L (98-107); CREATININE FOR GFR 1.14 MG/DL (0.55-1.30); GLOMERULAR FILTRATION RATE > 60.0 (>60); GLUCOSE, FASTING 90 MG/DL (70-100); HCG, SERUM QUANTITATIVE 1904 MIU/ML; LIPASE 84 U/L (73-393); POTASSIUM SERUM 4.1 MEQ/L (3.5-5.1); SODIUM LEVEL 137 MEQ/L (136-145); TOTAL PROTEIN 7.6 GM/DL (6.4-8.2)
--- NOTE | 2019-08-18 23:35 | REPVR ---
PROCEDURE INFORMATION: Exam: US First Trimester, Transabdominal Exam date and time: 08/18/2019 11:16 PM Age: 23 years old Clinical indication: complicated by abdominal or pelvic pain; Left lower quadrant; First trimester; Gestational age or lmp: 06/28/19; ; Prior surgery; Surgery date: 6+ months; Surgery type: C-sections; Additional info: Positive hcg with llq pain R/O ectopic TECHNIQUE: Imaging protocol: Real-time transabdominal obstetrical ultrasound of the maternal pelvis and a first trimester , less than 14 weeks 0 days, with image documentation. COMPARISON: No relevant prior studies available. FINDINGS: GESTATION: Gestation: No intrauterine gestation is identified. MATERNAL: Uterus: The uterus measures 11.6 cm in its cephalocaudad dimension and 4.8 x 5.8 cm in its AP and lateral dimensions transabdominal. The endometrium measures 14 mm transabdominal and 18 mm transvaginal. The uterus measures 10.0 cm in its cephalocaudad dimension and 5.4 x 5.7 cm in its AP and lateral dimensions transvaginal. Cervix: Unremarkable. Right adnexa: The right ovary measures 3.4 x 3.1 x 4.5 cm with a cyst measuring 1.8 x 2.2 x 2.4 cm. There is right ovarian arterial and venous blood flow. Left adnexa: The left ovary measures 3.2 x 5.0 x 4.1 cm with a somewhat complex cyst measuring 2.4 x 2.5 cm. There is left ovarian arterial and venous blood flow. Intraperitoneal: No intraperitoneal free fluid. Other findings: The urinary bladder is normal. IMPRESSION: 1. No intrauterine gestational sac is identified. Findings may reflect recent spontaneous AB. Ectopic is not excluded. Serial beta hCG levels may be of benefit for further evaluation. 2. Bilateral ovarian cysts measuring 2.4 x 2.5 cm on the left and 1.8 x 2.2 x 2.4 cm on the right. Electronically signed by: Delmar Archuleta On 08/18/2019 23:35:27 PM
[2019-08-18 23:39] VITALS: BP 134/85
== END 2019-08-18 23:53 | disposition home or self-care (01) ==
LOC: M ED 20:06
DX: Z32.01 Encounter for pregnancy test, result positive (principal); N83.201 Unspecified ovarian cyst, right side; N83.202 Unspecified ovarian cyst, left side; Z88.2 Allergy status to sulfonamides; Z79.899 Other long term (current) drug therapy
CPT/HCPCS: 76801; 76817; 80048; 80076; 81001; 83690; 84702; 85025; 86901; 93976; 96361; 96374; 99284; J2405

== ENCOUNTER → 2019-08-20 | Outpatient (CLI) | payer OTHER ==
[~2019-08-20] MED LIST changes: +VITA100T59 PO
== END ==
LOC: M LAB 16:48
PROVIDERS: ATTEND Nurse Practitioner Family
DX: O02.1 Missed abortion (principal)

== ENCOUNTER → 2019-08-28 | Outpatient (REF) | payer OTHER | LOC: M PLALAB 15:31 | PROVIDERS: ATTEND Advanced Practice Midwife | DX: O20.9 Hemorrhage in early pregnancy, unspecified (principal) ==

== ENCOUNTER 2019-09-17 17:37 | Day surgery (SDC) | payer OTHER ==
[~2019-09-17] VITALS: Ht 149.9 cm; Wt 108.4 kg
[~2019-09-17 17:37] MED LIST changes: -ACET-683 PO; -ASCO500T PO; -FERR325T82 PO; -IRONTAB3; -PRENATAL VIT; -PRENTAB55 PO
[2019-09-17] MEDS ORDERED: IRONTAB3 (17:45)
[2019-09-17] MEDS ORDERED: PRENATAL VIT (17:45)
[2019-09-17] MEDS ORDERED: ASCO500T PO (18:29)
[2019-09-17] MEDS ORDERED: PRENTAB55 PO (18:29)
[2019-09-17] MEDS ORDERED: FERR325T82 PO (18:29)
[2019-09-17 18:50] LABS: HEMATOCRIT 35.9 % (36.0-47.0); HEMOGLOBIN 11.8 g/dl (12.0-15.5); MEAN CORPUSCULAR HEMOGLOBIN 29.8 pg (27.0-33.0); MEAN CORPUSCULAR HGB CONC 32.9 g/dl (32.0-36.5); MEAN CORPUSCULAR VOLUME 90.7 fl (80.0-96.0); PLATELET COUNT, AUTOMATED 284 10^3/uL (150-450); RED BLOOD COUNT 3.96 10^6/uL (4.00-5.40); WHITE BLOOD COUNT 10.1 10^3/uL (4.0-10.0)
[2019-09-17] MEDS: LR 1,000 ML IV SCH (19:09)
[2019-09-17 23:28] VITALS: BP 135/90
[2019-09-18] VITALS (7 sets, daily range): BP systolic 115–144; BP diastolic 58–83
[2019-09-18] MEDS ORDERED: dexameTHASONE 4 MG/ML 1ML VIAL (J1100 PER 1MG) As Ordered ONE (00:39)
[2019-09-18] MEDS ORDERED: ONDANSETRON 4MG/2ML VIAL As Ordered ONE (00:39)
[2019-09-18] MEDS ORDERED: LIDOCAINE 2% 100MG/5ML SDV (FOR ANES.) As Ordered ONE (00:39)
[2019-09-18] MEDS ORDERED: fentaNYL 100 MCG/2 ML INJECTION (J3010) As Ordered ONE (00:39)
[2019-09-18] MEDS ORDERED: DESFLURANE 240 ML INHALANT As Ordered ONE (00:39)
[2019-09-18] MEDS ORDERED: KETOROLAC 60 MG/2 ML VIAL As Ordered ONE (00:39)
[2019-09-18] MEDS ORDERED: MIDAZOLAM INJ 2MG/2ML VIAL (J2250 PER 1MG) As Ordered ONE (00:39)
[2019-09-18] MEDS ORDERED: propofoL 200 MG/20 ML VIAL As Ordered ONE ×2 (00:39→01:19)
[2019-09-18] MEDS ORDERED: METOCLOPRAMIDE INJ 10MG/2ML VIAL (J2765 PER 1) As Ordered ONE (00:39)
[2019-09-18] MEDS ORDERED: PERCOCET 5MG/325MG TAB As Ordered ONE (01:33)
[2019-09-18] MEDS ORDERED: LIDOCAINE 1% SDV 30ML VIAL As Ordered ONE (01:39)
[2019-09-18] MEDS ORDERED: METOCLOPRAMIDE INJ 10MG/2ML VIAL (J2765 PER 1) IV PRN (02:00)
[2019-09-18] MEDS ORDERED: PERCOCET 5MG/325MG TAB PO PRN (02:00)
[2019-09-18] MEDS ORDERED: LR 1,000 ML IV SCH (02:00)
[2019-09-18] MEDS ORDERED: ONDANSETRON 4MG/2ML VIAL IV PRN (02:00)
[2019-09-18] MEDS ORDERED: fentaNYL 100 MCG/2 ML INJECTION (J3010) IV PRN (02:00)
[2019-09-18] MEDS: LR 1,000 ML IV SCH (02:15)
[2019-09-18] MEDS ORDERED: DOXYCYCLINE HYCLATE 100MG TABLET PO ONE (02:30)
[2019-09-18] MEDS ORDERED: ACETAMINOPHEN 500 MG TAB PO PRN (02:30)
[2019-09-18] MEDS ORDERED: ACET-683 PO (08:36)
--- NOTE | 2019-09-23 19:52 | RO ---
DATE OF PROCEDURE: 09/18/2019 PREPROCEDURE DIAGNOSIS: Missed , 9 weeks gestation. POSTPROCEDURE DIAGNOSIS: Missed , 9 weeks gestation. PROCEDURE: Dilation, evacuation and curettage (D, E and C). SURGEON: Foreign Rhodes MD ROAD CONTRACTOR: ANESTHESIA: Local with sedation. ESTIMATED BLOOD LOSS: 50 mL. URINE OUTPUT: 50 mL. FINDINGS: Moderate amount of products of conception. DESCRIPTION OF PROCEDURE: The patient was taken to the operating room where intravenous (IV) sedation was given. She was prepped and draped in a sterile fashion in the dorsal lithotomy position. The bladder was emptied with a catheter. A speculum was placed in the vagina. The cervix was injected circumferentially with 20 mL of 1% lidocaine. The anterior lip of the cervix was grasped with a tenaculum. The cervix was dilated with tapered dilators. A #9 mm suction curette was placed through the internal os. The suction device was activated, the curette was gently rotated. Some products of conception were noted coming through the suction tubing. Sharp curette performed. The uterine cavity was deemed to be empty. All instruments were removed. Sponge and instrument counts were correct.
== END 2019-09-18 09:40 | disposition home or self-care (01) ==
LOC: M ED 17:37 → M SDC 17:38 → ENRESERV 22:19 → M PED 23:07 → M SDC 09-18 09:40
PROVIDERS: ATTEND Specialist
DX: O02.1 Missed abortion (principal); Z91.040 Latex allergy status; Z88.2 Allergy status to sulfonamides
CPT/HCPCS: 59820; 85027; 88305; 99284; J1100; J1885; J2250; J2405; J2765; J3010; U0002

== ENCOUNTER → 2019-09-17 | Outpatient (REF) | payer OTHER ==
[~2019-09-17] MED LIST changes: +ACET-683 PO; +ASCO500T PO; +FERR325T82 PO; +IRONTAB3; +PRENATAL VIT; +PRENTAB55 PO
== END ==
LOC: M SFHCWAGY 08:32
PROVIDERS: ATTEND Advanced Practice Midwife
DX: O02.1 Missed abortion (principal)

== ENCOUNTER 2019-10-03 21:49 | Day surgery (SDC) | payer OTHER ==
[~2019-10-03] VITALS: Ht 149.9 cm; Wt 108.1 kg
[~2019-10-03 21:49] MED LIST changes: -IBUP200T45 PO; -MORPHINE 4 MG/ML 1ML VIAL/SYRINGE (J2270) As Ordered ONE; -NITR100C2; -ONDANSETRON 4MG/2ML VIAL As Ordered ONE; -PRENTAB53 PO
[2019-10-03 23:11] LABS: BASO % 0.2 % (0.0-1.0); EOS # 0.2 10^3/uL (0.0-0.5); EOS % 2.1 % (0.0-3.0); HEMATOCRIT 34.7 % (36.0-47.0); LYMPH # 2.6 10^3/uL (1.5-5.0); LYMPH % 26.1 % (24.0-44.0); MEAN CORPUSCULAR HEMOGLOBIN 28.6 pg (27.0-33.0); MEAN CORPUSCULAR HGB CONC 31.7 g/dl (32.0-36.5); MEAN CORPUSCULAR VOLUME 90.4 fl (80.0-96.0); MONO # 0.5 10^3/uL (0.0-0.8); MONO % 5.4 % (0.0-5.0); NEUTROPHILS # 6.5 10^3/uL (1.5-8.5); NEUTROPHILS % 65.9 % (36.0-66.0); PLATELET COUNT, AUTOMATED 316 10^3/uL (150-450); RED BLOOD COUNT 3.84 10^6/uL (4.00-5.40); WHITE BLOOD COUNT 9.8 10^3/uL (4.0-10.0)
--- NOTE | 2019-10-03 23:48 | REPVR ---
PROCEDURE INFORMATION: Exam: US First Trimester, Transabdominal Exam date and time: 10/03/2019 10:27 PM Age: 23 years old Clinical indication: Other: Lt adnexal pain; Gestational age or lmp: ? ; ; Additional info: Ectopic eval TECHNIQUE: Imaging protocol: Real-time transabdominal obstetrical ultrasound of the maternal pelvis and a first trimester , less than 14 weeks 0 days, with image documentation. COMPARISON: No relevant prior studies available. FINDINGS: Gestation: No intrauterine gestation. Heart rate: N/ Placenta: N/A Amniotic fluid: N/A BIOMETRY: Estimated gestational age: N/A MATERNAL: Uterus: 8.3 x 4.1 x 5.4 cm uterus is anteverted. Endometrium is 5.5 mm. Cervix: Unremarkable. Right adnexa: 3.3 x 2.5 x 3.6 cm right ovary with normal follicular architecture and blood flow. Left adnexa: 4.5 x 4.7 x 5 cm complex heterogeneous echogenicity and echotexture inferior to the left ovary. Intraperitoneal space: No intraperitoneal free fluid. Other findings: No free fluid. IMPRESSION: 1. No intrauterine gestation. 2. Complex 4.7 cm heterogeneous mass inferior to the left ovary, evidence suggesting ectopic. Differential also includes other soft tissue masses and congenital and cystic lesions. 3. No free fluid. Electronically signed by: Kingsley Eldridge On 10/03/2019 23:47:52 PM
[2019-10-04] VITALS (8 sets, daily range): BP systolic 105–124; BP diastolic 51–83
[2019-10-04] MEDS ORDERED: MORPHINE 4 MG/ML 1ML VIAL/SYRINGE (J2270) IV ONE
[2019-10-04] MEDS ORDERED: NS 1,000 ML IV SCH
[2019-10-04] MEDS ORDERED: IBUP200T45 PO (00:16)
[2019-10-04] MEDS ORDERED: dexameTHASONE 4 MG/ML 1ML VIAL (J1100 PER 1MG) As Ordered ONE (05:15)
[2019-10-04] MEDS ORDERED: ROCURONIUM BROMIDE 50 MG/5 ML VIAL As Ordered ONE (05:15)
[2019-10-04] MEDS ORDERED: propofoL 200 MG/20 ML VIAL As Ordered ONE (05:15)
[2019-10-04] MEDS ORDERED: fentaNYL 100 MCG/2 ML INJECTION (J3010) As Ordered ONE ×2 (05:15→06:43)
[2019-10-04] MEDS ORDERED: LIDOCAINE 2% 100MG/5ML SDV (FOR ANES.) As Ordered ONE (05:15)
[2019-10-04] MEDS ORDERED: MIDAZOLAM INJ 2MG/2ML VIAL (J2250 PER 1MG) As Ordered ONE (05:15)
[2019-10-04] MEDS ORDERED: BUPIVACAINE HCL 0.25% 30ML VIAL As Ordered ONE (05:42)
[2019-10-04] MEDS ORDERED: KETOROLAC 60MG 2ML VIAL As Ordered ONE (06:43)
[2019-10-04] MEDS ORDERED: SUGAMMADEX SODIUM 500 MG/5 ML VIAL (BRIDION) As Ordered ONE (06:57)
[2019-10-04] MEDS ORDERED: ACETAMINOPHEN 1000MG 100ML IV BTL (OFIRMEV) (J0131 PER 10MG) As Ordered ONE (07:13)
[2019-10-04] MEDS ORDERED: ONDANSETRON 4MG/2ML VIAL As Ordered ONE (07:23)
[2019-10-04] MEDS ORDERED: LR 1,000 ML IV SCH ×2 (07:45→09:30)
[2019-10-04] MEDS ORDERED: oxyCODONE 5MG TAB PO PRN ×2 (07:45→09:30)
[2019-10-04] MEDS ORDERED: fentaNYL 100 MCG/2 ML INJECTION (J3010) IV PRN ×2 (07:45→09:30)
[2019-10-04] MEDS ORDERED: ONDANSETRON 4MG/2ML VIAL IV PRN ×3 (07:45→09:30)
[2019-10-04] MEDS ORDERED: OXYC1TAB23 PO (08:30)
[2019-10-04] MEDS: LR 1,000 ML IV SCH ×2 (09:42→17:15)
[2019-10-04] MEDS ORDERED: PERCOCET 5MG/325MG TAB PO PRN (10:15)
[2019-10-04] MEDS ORDERED: MORPHINE 4 MG/ML 1ML VIAL/SYRINGE (J2270) IV PRN (10:15)
[2019-10-04] MEDS: ONDANSETRON 4MG/2ML VIAL IV SCH ×2 (12:50→16:00)
[2019-10-04] MEDS ORDERED: KETOROLAC 30 MG/ML 1ML VIAL IV SCH (13:00)
== END 2019-10-04 18:50 | disposition home or self-care (01) ==
LOC: M ED 21:49 → M SDC 21:50 → ENRESERV 10-04 00:24 → M MSPAV 10-04 01:54 → M SDC 10-04 18:50
PROVIDERS: ATTEND Obstetrics & Gynecology
DX: O00.90 Unspecified ectopic pregnancy without intrauterine pregnancy (principal); J45.909 Unspecified asthma, uncomplicated; Z91.040 Latex allergy status; Z88.2 Allergy status to sulfonamides
CPT/HCPCS: 59151; 76801; 76817; 84702; 85025; 87486; 87581; 87633; 87798; 88305; 96361; 96374; 96375; 99284; J0131; J1100; J1885; J2250; J2270; J2405; J3010

== ENCOUNTER → 2019-10-03 | Outpatient (REF) | payer OTHER ==
[~2019-10-03] MED LIST changes: +ACET-683 PO; +ASCO500T PO; +FERR325T82 PO; +IBUP200T45 PO; +IRONTAB3; +PRENATAL VIT; +PRENTAB55 PO
== END ==
LOC: M PLALAB 10:45
PROVIDERS: ATTEND Specialist
DX: O02.1 Missed abortion (principal)

== ENCOUNTER → 2019-10-03 | Outpatient (CLI) | payer OTHER ==
[~2019-10-03] MED LIST changes: +MORPHINE 4 MG/ML 1ML VIAL/SYRINGE (J2270) As Ordered ONE; +NITR100C2; +ONDANSETRON 4MG/2ML VIAL As Ordered ONE; +PRENTAB53 PO
--- NOTE | 2019-10-03 17:09 | REP ---
EMERGENCY FIRST TRIMESTER OBSTETRIC SONOGRAPHY: HISTORY: Ectopic without intrauterine , unspecified location. Status post D and C September 17. Quantitative HCG persists, 909. Comparison sonography, August 18, 2019. FINDINGS: Transabdominal scanning and transvaginal scanning are performed. Uterine dimensions are 9.9 x 4.8 x 5.0 cm. Endometrial echo 0.4 cm thick. There is no evidence of intrauterine gestation. The right ovary is normal measuring 2.5 x 2.1 x 2.9 cm. Its Doppler flow is normal, resistive index 0.73. The left adnexa is best seen on transabdominal imaging. There is a complex solid-appearing mass in the left adnexa measuring 5.3 x 4.9 x 5.1 cm. This is positioned posteriorly adjacent to what is felt to be the left ovary. Left ovarian dimensions apart from the mass are 3.1 x 1.8 x 2.8 cm. IMPRESSION: No evidence of intrauterine gestation. 5.3 cm predominately solid-appearing left adnexal mass. No free cul-de-sac fluid. Normal right ovary. Empty uterus. Electronically Signed by Jadiel Gustafson MD 10/04/2019 08:43 A
== END ==
LOC: M RAD 15:45
PROVIDERS: ATTEND Specialist
DX: O02.1 Missed abortion (principal)

== ENCOUNTER 2019-11-28 16:45 | Emergency (ER) | payer OTHER ==
[~2019-11-28 16:45] MED LIST changes: +IBUP200T45 PO
[2019-11-28] MEDS ORDERED: ONDANSETRON 4MG/2ML VIAL As Ordered ONE (17:14)
[2019-11-28] MEDS ORDERED: DICYCLOMINE 10 MG CAP ONE (17:16)
[2019-11-28] MEDS ORDERED: DICYCLOMINE 10 MG CAP As Ordered ONE (17:16)
[2019-11-28] MEDS ORDERED: ONDANSETRON 4MG/2ML VIAL ONE (17:16)
[2020-01-01 11:47] LABS: APPEARANCE, URINE HAZY (CLEAR); BACTERIA, URINE AUTO NEGATIVE (NEGATIVE); BILIRUBIN, URINE AUTO NEGATIVE (NEGATIVE); BLOOD, URINE BLOOD 1+ (NEGATIVE); COLOR, URINE YELLOW (YELLOW); GLUCOSE, URINE (UA) AUTO NEGATIVE (NEGATIVE); KETONE, URINE AUTO NEGATIVE (NEGATIVE); LEUKOCYTE ESTERASE, URINE AUTO TRACE (NEGATIVE); MUCUS, URINE SMALL (NEGATIVE); NITRITE, URINE AUTO NEGATIVE (NEGATIVE); PROTEIN, URINE AUTO NEGATIVE (NEGATIVE); RBC, URINE AUTO 1 /HPF (0-3); SPECIFIC GRAVITY URINE AUTO 1.021 (1.002-1.035); SQUAMOUS EPITHELIAL CELL UR AU 2 /HPF (0-6); UROBILINOGEN, URINE AUTO 0.2 mg/dL (0.0-2.0); WBC, URINE AUTO 2 /HPF (0-3)
[2020-01-02 08:47] LABS: BASO % 0.2 % (0.0-1.0); EOS # 0.3 10^3/uL (0.0-0.5); EOS % 2.8 % (0.0-3.0); HEMATOCRIT 38.2 % (36.0-47.0); HEMOGLOBIN 12.3 g/dl (12.0-15.5); LYMPH # 2.2 10^3/uL (1.5-5.0); LYMPH % 24.3 % (24.0-44.0); MEAN CORPUSCULAR HEMOGLOBIN 28.7 pg (27.0-33.0); MEAN CORPUSCULAR HGB CONC 32.2 g/dl (32.0-36.5); MEAN CORPUSCULAR VOLUME 89.3 fl (80.0-96.0); MONO # 0.6 10^3/uL (0.0-0.8); MONO % 6.6 % (0.0-5.0); NEUTROPHILS % 65.9 % (36.0-66.0); PLATELET COUNT, AUTOMATED 322 10^3/uL (150-450); RED BLOOD COUNT 4.28 10^6/uL (4.00-5.40); WHITE BLOOD COUNT 9.1 10^3/uL (4.0-10.0)
[2020-02-21 12:25] LABS: HCG, SERUM QUALITATIVE NEGATIVE (NEGATIVE)
[2020-02-21 12:32] LABS: ALBUMIN 3.4 GM/DL (3.2-5.2); ALT/SGPT 28 U/L (12-78); BILIRUBIN,DIRECT 0.1 MG/DL (0.0-0.2); BILIRUBIN,TOTAL 0.4 MG/DL (0.2-1.0); BLOOD UREA NITROGEN 14 MG/DL (7-18); CALCIUM LEVEL 8.6 MG/DL (8.5-10.1); CARBON DIOXIDE LEVEL 25 MEQ/L (21-32); CHLORIDE LEVEL 111 MEQ/L (98-107); CREATININE FOR GFR 0.84 MG/DL (0.55-1.30); GLOMERULAR FILTRATION RATE > 60.0 (>60); GLUCOSE, FASTING 102 MG/DL (70-100); LIPASE 87 U/L (73-393); POTASSIUM SERUM 4.2 MEQ/L (3.5-5.1); SODIUM LEVEL 140 MEQ/L (136-145)
== END 2019-11-28 19:44 | disposition home or self-care (01) ==
LOC: M ED 16:45
DX: R10.84 Generalized abdominal pain (principal); R11.2 Nausea with vomiting, unspecified; R19.7 Diarrhea, unspecified; Z88.2 Allergy status to sulfonamides
CPT/HCPCS: 80048; 80076; 81001; 83690; 84703; 85025; 87086; 96374; 99283; J2405

== ENCOUNTER 2020-01-05 18:19 | Emergency (ER) | payer OTHER ==
[~2020-01-05] VITALS: Ht 149.9 cm; Wt 107.9 kg
[2020-01-05 19:09] LABS: BASO % 0.3 % (0.0-1.0); EOS # 0.2 10^3/uL (0.0-0.5); EOS % 2.4 % (0.0-3.0); HEMATOCRIT 38.3 % (36.0-47.0); HEMOGLOBIN 12.3 g/dl (12.0-15.5); LYMPH # 2.8 10^3/uL (1.5-5.0); LYMPH % 30.9 % (24.0-44.0); MEAN CORPUSCULAR HEMOGLOBIN 28.3 pg (27.0-33.0); MEAN CORPUSCULAR HGB CONC 32.1 g/dl (32.0-36.5); MEAN CORPUSCULAR VOLUME 88.2 fl (80.0-96.0); MONO # 0.6 10^3/uL (0.0-0.8); MONO % 6.2 % (0.0-5.0); NEUTROPHILS # 5.5 10^3/uL (1.5-8.5); PLATELET COUNT, AUTOMATED 347 10^3/uL (150-450); RED BLOOD COUNT 4.34 10^6/uL (4.00-5.40); WHITE BLOOD COUNT 9.2 10^3/uL (4.0-10.0)
[2020-01-05 19:31] LABS: HCG, SERUM QUALITATIVE POSITIVE (NEGATIVE)
[2020-01-05 19:34] LABS: ALBUMIN 3.6 GM/DL (3.2-5.2); ALT/SGPT 29 U/L (12-78); BILIRUBIN,DIRECT < 0.1 MG/DL (0.0-0.2); BILIRUBIN,TOTAL 0.2 MG/DL (0.2-1.0); LIPASE 97 U/L (73-393); TOTAL PROTEIN 7.3 GM/DL (6.4-8.2)
[2020-01-05 20:05] LABS: BLOOD UREA NITROGEN 13 MG/DL (7-18); CALCIUM LEVEL 8.9 MG/DL (8.5-10.1); CARBON DIOXIDE LEVEL 24 MEQ/L (21-32); CHLORIDE LEVEL 108 MEQ/L (98-107); GLOMERULAR FILTRATION RATE > 60.0 (>60); GLUCOSE, FASTING 76 MG/DL (70-100); HCG, SERUM QUANTITATIVE 424 MIU/ML; POTASSIUM SERUM 4.3 MEQ/L (3.5-5.1); SODIUM LEVEL 137 MEQ/L (136-145)
--- NOTE | 2020-01-05 21:40 | REPVR ---
PROCEDURE INFORMATION: Exam: US Pelvis Limited, Transabdominal Exam date and time: 01/05/2020 9:21 PM Age: 24 years old Clinical indication: Pelvic pain; Additional info: Rlq pain eval for appy TECHNIQUE: Imaging protocol: Real-time transabdominal pelvic ultrasound with image documentation. Limited exam. COMPARISON: US OBS FOLL UP OR REPEAT EACH GES 12/28/2017 8:51 AM FINDINGS: Appendix: The appendix is not visualized. Other findings: No dilated bowel loops or free fluid. No adenopathy. IMPRESSION: Appendix is not visualized. Electronically signed by: Uriah Mann On 01/05/2020 21:39:42 PM
--- NOTE | 2020-01-05 21:42 | REPVR ---
PROCEDURE INFORMATION: Exam: US First Trimester, Transabdominal Exam date and time: 01/05/2020 9:21 PM Age: 24 years old Clinical indication: complicated by abdominal or pelvic pain; Lower; First trimester; Gestational age or lmp: 12/07/19; ; Additional info: Preg abd pain eval for iup TECHNIQUE: Imaging protocol: Real-time transabdominal obstetrical ultrasound of the maternal pelvis and a first trimester , less than 14 weeks 0 days, with image documentation. COMPARISON: US OBS FOLL UP OR REPEAT EACH GES 12/28/2017 8:51 AM FINDINGS: MATERNAL: Uterus: No intrauterine is seen. Uterus measures 9.5 x 4.7 x 5.0 cm. Endometrium measures 12 mm. No uterine or endometrial masses. Cervix: Unremarkable. Right adnexa: 1.6 cm cyst in the right ovary. Right ovary is otherwise unremarkable. No hydrosalpinx. Normal blood flow. Left adnexa: Absent. Intraperitoneal space: No intraperitoneal free fluid. No signs of an ectopic . IMPRESSION: 1. No signs of an intrauterine or ectopic . 2. Small cyst in the right ovary. Electronically signed by: Uriah Mann On 01/05/2020 21:42:21 PM
[2020-01-05 22:47] VITALS: BP 125/59
[2020-01-07 17:16] LABS: CHLAMYDIA DNA AMPLIFICATION NEGATIVE (NEGATIVE); GC DNA AMPLIFICATION NEGATIVE (NEGATIVE)
== END 2020-01-05 22:49 | disposition home or self-care (01) ==
LOC: M ED 18:19
DX: O99.89 Other specified diseases and conditions complicating pregnancy, childbirth and the puerperium (principal); R10.9 Unspecified abdominal pain; R19.7 Diarrhea, unspecified; Z3A.00 Weeks of gestation of pregnancy not specified

== ENCOUNTER → 2020-01-07 | Outpatient (CLI) | payer OTHER | LOC: M LAB 12:41 | PROVIDERS: ATTEND Emergency Medicine | DX: Z32.00 Encounter for pregnancy test, result unknown (principal) ==

== ENCOUNTER → 2020-01-22 | Outpatient (REF) | payer OTHER ==
[2020-01-22 13:55] LABS: HEMATOCRIT 37.3 % (36.0-47.0); HEMOGLOBIN 11.8 g/dl (12.0-15.5); MEAN CORPUSCULAR HEMOGLOBIN 28.2 pg (27.0-33.0); MEAN CORPUSCULAR HGB CONC 31.6 g/dl (32.0-36.5); PLATELET COUNT, AUTOMATED 323 10^3/uL (150-450); RED BLOOD COUNT 4.19 10^6/uL (4.00-5.40); WHITE BLOOD COUNT 10.4 10^3/uL (4.0-10.0)
[2020-01-22 15:05] LABS: HEPATITIS C VIRUS ABY INDEX 0.2 INDEX (<0.8); HIV 1&2 SCREEN CENTAUR NEGATIVE (NEGATIVE)
== END ==
LOC: M PLALAB 11:07
PROVIDERS: ATTEND Specialist
DX: Z34.81 Encounter for supervision of other normal pregnancy, first trimester (principal)

== ENCOUNTER 2020-04-07 20:13 | Emergency (ER) | payer OTHER ==
[~2020-04-07] VITALS: Ht 149.9 cm; Wt 109.0 kg
[2020-04-07 20:13] VITALS: BP 144/63
[~2020-04-07 20:13] MED LIST changes: +NITR100C2
[2020-04-07] MEDS ORDERED: PRENTAB53 PO (20:41)
[2020-04-07 21:49] LABS: BASO % 0.2 % (0.0-1.0); EOS # 0.2 10^3/uL (0.0-0.5); EOS % 1.6 % (0.0-3.0); HEMATOCRIT 32.8 % (36.0-47.0); HEMOGLOBIN 10.3 g/dl (12.0-15.5); LYMPH # 2.3 10^3/uL (1.5-5.0); LYMPH % 21.9 % (24.0-44.0); MEAN CORPUSCULAR HEMOGLOBIN 28.5 pg (27.0-33.0); MEAN CORPUSCULAR HGB CONC 31.4 g/dl (32.0-36.5); MEAN CORPUSCULAR VOLUME 90.6 fl (80.0-96.0); MONO # 0.6 10^3/uL (0.0-0.8); MONO % 5.7 % (0.0-5.0); NEUTROPHILS # 7.5 10^3/uL (1.5-8.5); PLATELET COUNT, AUTOMATED 265 10^3/uL (150-450); RED BLOOD COUNT 3.62 10^6/uL (4.00-5.40); WHITE BLOOD COUNT 10.7 10^3/uL (4.0-10.0)
[2020-04-07 22:16] LABS: ALBUMIN 2.9 GM/DL (3.2-5.2); ALT/SGPT 18 U/L (12-78); BILIRUBIN,TOTAL 0.2 MG/DL (0.2-1.0); BLOOD UREA NITROGEN 12 MG/DL (7-18); CALCIUM LEVEL 8.6 MG/DL (8.5-10.1); CARBON DIOXIDE LEVEL 26 MEQ/L (21-32); CHLORIDE LEVEL 108 MEQ/L (98-107); CREATININE FOR GFR 0.57 MG/DL (0.55-1.30); GLOMERULAR FILTRATION RATE > 60.0 (>60); GLUCOSE, FASTING 88 MG/DL (70-100); POTASSIUM SERUM 4.3 MEQ/L (3.5-5.1); SODIUM LEVEL 141 MEQ/L (136-145); TOTAL PROTEIN 6.4 GM/DL (6.4-8.2)
--- NOTE | 2020-04-07 22:22 | REPVR ---
PROCEDURE INFORMATION: Exam: US , Limited Exam date and time: 04/07/2020 10:03 PM Age: 24 years old Clinical indication: Injury or trauma; Fall; Blunt trauma; Left upper quadrant; Injury date: 04/07/20; ; Additional info: Fell on stomach from stairs/18 wks TECHNIQUE: Imaging protocol: Real-time ultrasound of the maternal uterus with image documentation. Exam focused on the clinical indication. COMPARISON: US OBS SINGEL GEST 03/22/2020 6:23 PM FINDINGS: Gestation: Single intrauterine gestation. Presentation: Fetus currently in transverse lie, head to maternal right. Placenta: Posterior placenta. No placenta previa. Amniotic fluid: Amniotic fluid volume unremarkable. CAMILA 9.7 cm. BIOMETRY: Gestational age (AUA): Gestational age is 17 weeks 4 days based on LMP of 12/06/2019. VENU is 09/11/2020. MATERNAL: Cervix: Cervix measures 5 point 7 cm without funneling or bulging membranes. IMPRESSION: Unremarkable limited evaluation in this 17 week 4 day gestation based on LMP. Electronically signed by: Ronny Bonilla On 04/07/2020 22:22:41 PM
--- NOTE | 2020-04-07 22:25 | REPVR ---
PROCEDURE INFORMATION: Exam: US Abdomen; Limited Exam date and time: 04/07/2020 10:03 PM Age: 24 years old Clinical indication: Abdominal pain; Localized; Left upper quadrant (luq); ; Additional info: Fell on stomach from stairs/18 wks preg/luq pain ? spleen TECHNIQUE: Imaging protocol: US abdomen. Real time ultrasound with image documentation. Limited exam focused on the region of clinical interest. COMPARISON: US OBS SINGEL GEST 03/22/2020 6:23 PM FINDINGS: Left kidney: Left kidney measures 13.2 x 4.8 x 4.8 cm. Parenchyma unremarkable. Spleen: Spleen measures 12.6 x 5.7 x 11.3 cm. Estimated splenic volume is 405 cc. Splenic texture unremarkable. IMPRESSION: Unremarkable evaluation of the left kidney and spleen. Electronically signed by: Ronny Bonilla On 04/07/2020 22:25:26 PM
== END 2020-04-07 23:55 | disposition home or self-care (01) ==
LOC: M ED 20:13
DX: S39.91XA Unspecified injury of abdomen, initial encounter (principal); S09.93XA Unspecified injury of face, initial encounter; W10.9XXA Fall (on) (from) unspecified stairs and steps, initial encounter; Y92.099 Unspecified place in other non-institutional residence as the place of occurrence of the external cause; Y93.9 Activity, unspecified; Y99.9 Unspecified external cause status; O99.512 Diseases of the respiratory system complicating pregnancy, second trimester; Z3A.17 17 weeks gestation of pregnancy; Z79.899 Other long term (current) drug therapy; Z88.2 Allergy status to sulfonamides; Z91.040 Latex allergy status

== ENCOUNTER → 2020-04-15 | Outpatient (CLI) | payer OTHER ==
[~2020-04-15] MED LIST changes: +PRENTAB53 PO
--- NOTE | 2020-04-15 15:15 | REP ---
INDICATION: ANATOMY. COMPARISON: Comparison study April 07, 2020.. TECHNIQUE: Transabdominal obstetric sonography. FINDINGS: Scanning through the gravid uterus demonstrates a viable single intrauterine gestation in transverse head to the maternal left lie. motion is observed and heart rate is recorded at 138 beats per minute. A posterior placenta is seen, grade 0, without evidence of placenta previa. Amniotic fluid is subjectively normal. Closed cervical length is measured at 3.0 cm transabdominally. No extrauterine abnormality is observed. Amniotic fluid is subjectively normal. No anomaly is seen today. The following anatomic structures are less than optimally seen due to position: Face and profile nose and lips, four-chamber heart with left and right ventricular outflow tract views. The following anatomic structures are identified and felt to be unremarkable: cranium and intracranial anatomy, diaphragm, left-sided stomach, right and left kidney, urinary bladder, spine, upper and lower extremities, three-vessel cord.. Biometry chart: BPD 4.2 cm, 18 weeks 4 days Head circumference 15.8 cm, 18 weeks 5 days Abdominal circumference 13.1 cm, 18 weeks 4 days Femur length 2.8 cm, 18 weeks 4 days Humeral length 2.7 cm, 18 weeks 5 days He HC AC ratio normal 1.21 Cephalic index normal 0.72 Estimated weight 249 g, 0 lb 8 oz, 41st percentile for 18 weeks 5 days IMPRESSION: Viable single intrauterine gestation at 18 weeks 5 days by today's composite sonographic criteria. VENU by today's sonography September 11, 2020. No complication identified. anatomic survey less than complete regarding face and cardiac structures. <Electronically signed by Denton Gustafson > 04/15/20 [id number]
== END ==
LOC: M WHC 13:25
PROVIDERS: ATTEND Advanced Practice Midwife
DX: Z36.9 Encounter for antenatal screening, unspecified (principal); Z3A.18 18 weeks gestation of pregnancy

== ENCOUNTER → 2020-04-30 | Outpatient (CLI) | payer OTHER ==
--- NOTE | 2020-05-01 06:40 | REP ---
INDICATION: F/U ANATOMY COMPARISON: 04/15/2020 TECHNIQUE: Transabdominal obstetrical ultrasound with color Doppler evaluation. FINDINGS: Examination demonstrates a single live intrauterine in transverse presentation. motion is identified by technologist. Placenta is noted posterior and grade 0 without evidence for placenta previa or abruption. Amniotic fluid volume is normal. Cervix measures 3.1 cm in length and appears closed.. Gestational age by LMP 20 weeks 6 days with VENU 09/11/2020. Gestational age by current measurements 20 weeks 5 days with VENU 09/12/2020. FHR equals 143 beats per minute. Estimated weight 375 grams (37thpercentile). Anatomical assessment demonstrates normal structures including facial profile, nose/lips. IMPRESSION: Single live intrauterine demonstrating appropriate estimated weight and growth. Continued limited evaluation of the heart and cardiac ventricular outflow tracts due to positioning. Facial features are normal. <Electronically signed by Chava Stubbs > 05/01/20 [id number]
== END ==
LOC: M WHC 14:27
PROVIDERS: ATTEND Advanced Practice Midwife
DX: Z36.9 Encounter for antenatal screening, unspecified (principal); Z3A.20 20 weeks gestation of pregnancy

== ENCOUNTER → 2020-06-12 | Outpatient (CLI) | payer OTHER ==
--- NOTE | 2020-06-12 14:16 | REP ---
INDICATION: F/U ANATOMY. COMPARISON: Comparison study is from 30 April 2020.. TECHNIQUE: Transabdominal obstetric sonography. FINDINGS: Scanning through the gravid uterus demonstrates a viable single intrauterine gestation in transverse, head to the maternal right lie. motion is observed and heart rate is recorded at 155 beats per minute. A posterior placenta is seen, grade 1, without evidence of placenta previa. Closed cervical length is measured at 3.2 cm transabdominally. No extrauterine abnormality is observed. Amniotic fluid is subjectively normal. The following anatomic structures are identified today and felt to be unremarkable: cranium, four-chamber heart with left and right ventricular outflow tract views, left-sided stomach, abdominal wall cord insertion, right and left kidney, urinary bladder, three-vessel cord. In conjunction with the prior study, anatomic survey is felt to be complete.. Biometry chart: BPD 6.7 cm, 26 weeks 6 days Head circumference 24.4 cm, 26 weeks 4 days Abdominal circumference 22.6 cm, 27 weeks 0 days Femur length 5.0 cm, 27 weeks 0 days Humeral length 4.8 cm, 28 weeks 3 days HC AC ratio normal 1.08 Cephalic index normal 0.76 Estimated weight 1001 g, 2 lb 3 oz, 35th percentile for 27 weeks 0 days IMPRESSION: Viable single intrauterine gestation at 27 weeks 1 days by today's composite sonographic criteria. VENU by today's sonography September 10, 2020. No complication identified. Expected gestational age estimate based on prior sonography is 27 weeks 0 days, VENU September 11, 2020. There is evidence of appropriate interval growth. anatomic survey is felt to be complete. <Electronically signed by Denton Gustafson > 06/12/20 [id number]
== END ==
LOC: M WHC 10:30
PROVIDERS: ATTEND Advanced Practice Midwife
DX: Z34.92 Encounter for supervision of normal pregnancy, unspecified, second trimester (principal); Z3A.27 27 weeks gestation of pregnancy

== ENCOUNTER → 2020-06-17 | Outpatient (REF) | payer OTHER ==
[2020-06-17 17:58] LABS: APPEARANCE, URINE CLOUDY (CLEAR); BACTERIA, URINE AUTO 1+ (NEGATIVE); BILIRUBIN, URINE AUTO NEGATIVE (NEGATIVE); BLOOD, URINE BLOOD NEGATIVE (NEGATIVE); CALCIUM OXALATE CRYSTALS SMALL; COLOR, URINE YELLOW (YELLOW); GLUCOSE, URINE (UA) AUTO NEGATIVE (NEGATIVE); KETONE, URINE AUTO NEGATIVE (NEGATIVE); LEUKOCYTE ESTERASE, URINE AUTO 1+ (NEGATIVE); MUCUS, URINE SMALL (NEGATIVE); NITRITE, URINE AUTO NEGATIVE (NEGATIVE); PROTEIN, URINE AUTO 1+ mg/dL (NEGATIVE); RBC, URINE AUTO 2 /HPF (0-3); SPECIFIC GRAVITY URINE AUTO 1.024 (1.002-1.035); SQUAMOUS EPITHELIAL CELL UR AU 23 /HPF (0-6); UROBILINOGEN, URINE AUTO 0.2 mg/dL (0.0-2.0); WBC, URINE AUTO 3 /HPF (0-3)
== END ==
LOC: M SFHCWAGY 17:28
PROVIDERS: ATTEND Advanced Practice Midwife
DX: R30.0 Dysuria (principal)

== ENCOUNTER → 2020-06-23 | Outpatient (REF) | payer OTHER ==
[2020-06-23 14:14] LABS: HEMATOCRIT 32.3 % (36.0-47.0); HEMOGLOBIN 9.9 g/dl (12.0-15.5); MEAN CORPUSCULAR HEMOGLOBIN 29.2 pg (27.0-33.0); MEAN CORPUSCULAR HGB CONC 30.7 g/dl (32.0-36.5); MEAN CORPUSCULAR VOLUME 95.3 fl (80.0-96.0); PLATELET COUNT, AUTOMATED 268 10^3/uL (150-450); RED BLOOD COUNT 3.39 10^6/uL (4.00-5.40)
== END ==
LOC: M PLALAB 09:04
PROVIDERS: ATTEND Advanced Practice Midwife
DX: Z3A.24 24 weeks gestation of pregnancy (principal)

== ENCOUNTER 2020-08-03 22:51 | Outpatient (CLI) | payer OTHER ==
[~2020-08-03] VITALS: Ht 149.9 cm; Wt 112.5 kg
[~2020-08-03 22:51] MED LIST changes: -IRONTAB2 PO
[2020-08-03] MEDS ORDERED: IRONTAB2 PO (23:22)
[2020-08-03 23:24] VITALS: BP 118/67
[2020-08-03] MEDS ORDERED: FLUCONAZOLE 50MG TABLET PO ONE (23:55)
--- NOTE | 2020-08-04 00:01 | IPNPDOC ---
Text Note Date of Service The patient was seen on 08/03/20. NOTE Subjective: Nai is a 24-year-old female who is a a at 34.3 weeks gestation with an VENU of 09/11/20. Her has been complicated by a placental previa that has resolved, 2 prior sections, and morbid obesity. She presents to L&D with complaints of leaking of fluid that started at about 2130. She denies any gushing. Reports she had sex 24 hours ago. She report s pressure but denies vaginal bleeding or contractions. She reports active movement. MHx: morbid obesity and asthma SHx: section x2; D&C; laparoscopic left salpingectomy oophorectomy due to ectopic FHx: ovarian cancer and HTN Social Hx: , denies smoking, denies alcohol or drug use/abuse OB Hx: -02/2017: 41 weeks c/s due to arrest of dilation, female, 8 lbs 7 oz, no complications -04/23/18: 39.3 weeks repeat c/s, male, 7 lbs 15 oz, no complications Objective: FHR: 110-120, moderate variability, positive accelerations, no decelerations. [place]: occasional General: Does not appear to be in any distress. Respiratory: Regular rate and rhythm without use of accessory muscles. Abdomen: gravid, soft and not tender to touch. US: cephalic presentation, active movement with flexion noted. CAMILA: 19.69 Speculum exam: SSE shows thick, white discharge that is adherent to vaginal doherty. No pooling of fluid in vaginal. No fluid from cervix with Valsalva. Nitrazine negative, fern negative. Wet prep shows +pseudohyphae and yeast buds. Assessment: IUP at 34.3 weeks gestation, not spontaneously ruptured, candidiasis of vagina Plan: UA and urine culture obtained. Reviewed findings with patient. Patient does not have PPROM. Reviewed diagnosis of yeast infection. Diflucan given PO. Reviewed access to care, kick count, labor signs and danger signs to report. VS,Fishbone, I+O VS, Fishbone, I+O BP: 118/67; HR: 88; Resp: 18; Temp: 97.7 ZION GRANT CNM Aug 04, 2020 00:01
[2020-08-04 00:20] LABS: APPEARANCE, URINE HAZY (CLEAR); BACTERIA, URINE AUTO NEGATIVE (NEGATIVE); BILIRUBIN, URINE AUTO NEGATIVE (NEGATIVE); BLOOD, URINE BLOOD NEGATIVE (NEGATIVE); COLOR, URINE YELLOW (YELLOW); GLUCOSE, URINE (UA) AUTO NEGATIVE (NEGATIVE); KETONE, URINE AUTO 1+ mg/dL (NEGATIVE); LEUKOCYTE ESTERASE, URINE AUTO 2+ (NEGATIVE); MUCUS, URINE SMALL (NEGATIVE); NITRITE, URINE AUTO NEGATIVE (NEGATIVE); PROTEIN, URINE AUTO 1+ mg/dL (NEGATIVE); RBC, URINE AUTO 4 /HPF (0-3); SPECIFIC GRAVITY URINE AUTO 1.025 (1.002-1.035); SQUAMOUS EPITHELIAL CELL UR AU 4 /HPF (0-6); WBC, URINE AUTO 10 /HPF (0-3)
== END 2020-08-04 00:23 | disposition home or self-care (01) ==
LOC: M LDO 22:51
PROVIDERS: ATTEND Advanced Practice Midwife
DX: O23.593 Infection of other part of genital tract in pregnancy, third trimester (principal); O34.219 Maternal care for unspecified type scar from previous cesarean delivery; O99.213 Obesity complicating pregnancy, third trimester; B37.3 Candidiasis of vulva and vagina; E66.01 Morbid (severe) obesity due to excess calories; Z3A.34 34 weeks gestation of pregnancy; Z87.59 Personal history of other complications of pregnancy, childbirth and the puerperium

== ENCOUNTER → 2020-08-03 | Outpatient (CLI) | payer OTHER ==
[~2020-08-03] MED LIST changes: +IRONTAB2 PO
[2020-08-03 16:15] LABS: ALBUMIN 2.5 GM/DL (3.2-5.2); ALT/SGPT 17 U/L (12-78); BILIRUBIN,DIRECT < 0.1 MG/DL (0.0-0.2); BILIRUBIN,TOTAL 0.3 MG/DL (0.2-1.0); TOTAL PROTEIN 5.9 GM/DL (6.4-8.2)
== END ==
LOC: M LAB 14:59
PROVIDERS: ATTEND Advanced Practice Midwife
DX: L29.9 Pruritus, unspecified (principal); R35.0 Frequency of micturition

== ENCOUNTER 2020-08-11 11:50 | Outpatient (CLI) | payer OTHER ==
[~2020-08-11 11:50] MED LIST changes: +IRONTAB2 PO
--- NOTE | 2020-08-11 14:39 | IPNPDOC ---
Text Note Date of Service The patient was seen on 08/11/20. NOTE L&D triage note Nai is a 24yo with SIUP at 35w4d presenting for DFM and hip pain, bilateral. She called clinic and told the nurse that she did a kick count and got 2 movements in 1 hour then 6 in 2nd hour. No LOF, no vaginal bleeding. No regular/painful ctx. Vitals wnl, afebrile Gen: WDWN, obese, NAD, resting comfortably in bed Abdomen: soft, gravid, NTTP Extremities: no edema of BLE SCE (Wenceslao as clutch inspector): closed/thick/high (out of pelvis) Cat I FHRT on prolonged monitoring, +accels, -decels, mod th[place]: no ctx pattern Assessment: Nai is a 24yo with SIUP at 35w4d with reassuring assessment and no signs of active labor. Cat I FHRT. Vitals wnl, benign exam, SCE cl/thick/high. She is now feeling robust movement since coming in. Plan: -discharge to home -discussed ok to take tylenol or warm baths for hip discomfort -keep next routine ob appt on Monday -return precautions discussed MD Anderson Chirinos Katrina D MD Aug 11, 2020 14:39
== END 2020-08-11 14:42 | disposition home or self-care (01) ==
LOC: M LDO 11:50
PROVIDERS: ATTEND Obstetrics & Gynecology
DX: O36.8130 Decreased fetal movements, third trimester, not applicable or unspecified (principal); Z3A.35 35 weeks gestation of pregnancy; O26.893 Other specified pregnancy related conditions, third trimester; M25.551 Pain in right hip; M25.552 Pain in left hip; Z88.2 Allergy status to sulfonamides

== ENCOUNTER → 2020-08-14 | Outpatient (REF) | payer OTHER | LOC: M SFHCWAGY 09:56 | PROVIDERS: ATTEND Advanced Practice Midwife | DX: O34.211 Maternal care for low transverse scar from previous cesarean delivery (principal) ==

== ENCOUNTER → 2020-08-21 | Outpatient (CLI) | payer SELFPAY | LOC: M LABSMTC 13:38 | PROVIDERS: ATTEND Pediatrics | DX: Z11.52 Encounter for screening for COVID-19 (principal) ==

== ENCOUNTER 2020-09-04 05:37 | Inpatient (IN) | payer OTHER ==
[~2020-09-04] VITALS: Ht 149.9 cm; Wt 113.9 kg
[2020-09-04] MEDS ORDERED: LR 1,000 ML IV ONE (05:55)
[2020-09-04] MEDS ORDERED: BICITRA 30ML SOLN UDC PO ONE (05:55)
[2020-09-04] MEDS ORDERED: LR 1,000 ML IV SCH (05:55)
[2020-09-04] MEDS ORDERED: ceFAZolin SOD 2 GM in IV 1 EA IV ONE (05:55)
[2020-09-04 06:18] LABS: HEMATOCRIT 34.7 % (36.0-47.0); HEMOGLOBIN 10.9 g/dl (12.0-15.5); MEAN CORPUSCULAR HEMOGLOBIN 28.7 pg (27.0-33.0); MEAN CORPUSCULAR HGB CONC 31.4 g/dl (32.0-36.5); MEAN CORPUSCULAR VOLUME 91.3 fl (80.0-96.0); PLATELET COUNT, AUTOMATED 244 10^3/uL (150-450); WHITE BLOOD COUNT 9.4 10^3/uL (4.0-10.0)
[2020-09-04] MEDS ORDERED: OXYTOCIN INJ 10 UNITS/ML VIAL (J2590) As Ordered ONE (07:08)
[2020-09-04] MEDS ORDERED: MORPHINE PRES-FREE INJ 10 MG/10 ML VIAL (J2274) As Ordered ONE (07:10)
[2020-09-04] MEDS ORDERED: dexameTHASONE 4 MG/ML 1ML VIAL (J1100 PER 1MG) As Ordered ONE (07:15)
[2020-09-04] MEDS ORDERED: ONDANSETRON 4MG/2ML VIAL As Ordered ONE ×2 (07:15→10:38)
[2020-09-04] MEDS ORDERED: ONDANSETRON 4MG/2ML VIAL IV PRN ×3 (08:35→10:05)
[2020-09-04] MEDS ORDERED: NALOXONE INJ 0.4MG/1ML VIAL (J2310 PER 1MG) IV PRN ×2 (08:35)
[2020-09-04] MEDS ORDERED: NALBUPHINE HCL 10 MG/ML AMP (J2300) IV PRN (08:35)
[2020-09-04] MEDS ORDERED: diphenhydrAMINE 50MG/ML VIAL (J1200) IV PRN (08:35)
[2020-09-04] MEDS ORDERED: METOCLOPRAMIDE INJ 10MG/2ML VIAL (J2765 PER 1) IV PRN (08:35)
[2020-09-04] MEDS ORDERED: PHENYLephrine 500MCG 5ML (100MCG/ML) SYRINGE As Ordered ONE (08:40)
[2020-09-04] MEDS: LR 1,000 ML IV SCH ×2 (08:45→14:34)
[2020-09-04] MEDS ORDERED: SIMETHICONE 80MG CHEW TAB PO PRN (08:45)
[2020-09-04] MEDS ORDERED: RHOGAM 300 MCG (1500 IU) INJ (J2790) IM SCH (08:45)
[2020-09-04] MEDS ORDERED: MEASLES,MUMPS,RUBELLA VACCINE INJ (MMR-II) (90707) SC SCH (08:45)
[2020-09-04] MEDS ORDERED: PERCOCET 5MG/325MG TAB PO PRN (08:45)
[2020-09-04] MEDS ORDERED: MOM 30ML SUSPENSION UDC PO PRN (08:45)
[2020-09-04] MEDS ORDERED: OXYTOCIN DRIP 30 UNITS in IV 1 EA IV SCH (08:45)
[2020-09-04] MEDS: DOCUSATE SODIUM 100MG CAPSULE PO SCH ×2 (09:00→21:20)
[2020-09-04] MEDS: PRENATAL VITAMINS CHEWABLE TABLET PO SCH (09:00)
[2020-09-04] MEDS ORDERED: METOCLOPRAMIDE INJ 10MG/2ML VIAL (J2765 PER 1) As Ordered ONE (09:00)
[2020-09-04] MEDS ORDERED: KETOROLAC 60MG 2ML VIAL As Ordered ONE (09:04)
[2020-09-04] MEDS ORDERED: fentaNYL 100 MCG/2 ML INJECTION (J3010) IV PRN (10:05)
[2020-09-04] MEDS ORDERED: oxyCODONE 5MG TAB PO PRN (10:05)
[2020-09-04] MEDS ORDERED: OXYTOCIN 30 UNITS IN 0.9% NaCl 500ML IV BAG (J2590) As Ordered ONE (10:13)
[2020-09-04 11:45] VITALS: BP 115/57
[2020-09-04 12:15] VITALS: BP 109/52
[2020-09-04 13:15] VITALS: BP 104/53
[2020-09-04 14:10] VITALS: BP 116/58
[2020-09-04] MEDS: KETOROLAC 30 MG/ML 1ML VIAL IV SCH ×2 (14:33→21:21)
--- NOTE | 2020-09-04 15:32 | ROOPDOC ---
[facility] Report Of Operation Report of Operation DATE OF PROCEDURE: 09/04/20 SURGEON: Claudia Mcmillan M.D. PATROL COMMANDER: Aurelia Barron M.D. ( essential for tissue retractions, exposure and delivery of ) PROCEDURE: Repeat section PREOPERATIVE DIAGNOSIS: 1. History of prior section POSTOPERATIVE DIAGNOSIS: 1. History of prior section ANESTHESIA: Spinal ESTIMATED BLOOD LOSS: 500 mL URINE OUTPUT: 100 mL INTRAVENOUS FLUIDS:1200 mL of lactated Ringer's solution PREOPERATIVE ANTIBIOTICS:. 2 g of Ancef OPERATIVE FINDINGS: Liveborn male , Apgars 9 and 9. Weight SPECIMENS: None DESCRIPTION OF PROCEDURE: After informed consent was obtained and written consent was reviewed. The patient was brought to the operating room where spinal anesthesia was placed. She was then placed in the supine position with a left lateral tilt. Fischer catheter was placed and to gravity. Patient was then prepped and draped in the normal sterile fashion. A timeout operating room was performed identifying the patient, procedure be performed as well as drug allergies. Anesthesia was tested and deemed to be adequate. Pfannenstiel skin incision was made and this was carried down to the underlying rectus fascia. The fascia was then scored and this incision was extended bilaterally. The fascia was then dissected off the underlying rectus muscle superiorly and inferiorly. The rectus muscles were then in the midline. The peritoneum is then entered. Vesicouterine peritoneum was then tented and excised and a bladder flap was created. Mobius retractor was then placed. Next, a curvilinear incision was then made in the lower uterine segment. Amniotomy was performed, productive, clear fluid. The head was brought to the level of the incision atraumatically and delivered along the shoulders and corpus. The cord was clamped x2. The was brought over to the warmer with a good cry. Placenta was drained and delivered grossly intact. The uterus was cleared of all clots and debris and the uterine incision was then closed using 0 Vicryl in a running locking fashion followed by a second layer of 0 Vicryl in a running nonlocking fashion for imbrication. The abdomen suctioned. Surgical sites reinspected and noted be hemostatic. The retractor was then removed. The anterior peritoneum was then reapproximated with 3-0 Vicryl. The rectus muscles were reapproximated 3-0 Vicryl. The fascia was then closed using 0 Vicryl in a running nonlocking fashion. The subcutaneous tissues was then irrigated and suctioned. Subcutaneous tissue was reapproximated using 3-0 Vicryl. Several subdermal stitch is placed using 3-0 Vicryl and the skin was closed with 4-0 Monocryl and subcuticular fashion. This incision was then cleaned and dried and was dressed. The patient was then taken to recovery in stable condition. All counts were correct. . My assistant professor of chemistry Dr. Barron played in an essential role during the operation. She assisted with tissue identification retraction, delivery of the , as well as wound closure. CLAUDIA MCMILLAN MD. September 04, 2020 15:31
[2020-09-04] MEDS ORDERED: SLF 3 ML SYR IV PRN (15:45)
[2020-09-04 18:00] VITALS: BP 133/66
[2020-09-04 22:00] VITALS: BP 108/55
[2020-09-04] MEDS: SLF 3 ML SYR IV SCH (22:00)
[2020-09-05] MEDS: LR 1,000 ML IV SCH
[2020-09-05 02:00] VITALS: BP 98/56
[2020-09-05] MEDS: KETOROLAC 30 MG/ML 1ML VIAL IV SCH (02:51)
[2020-09-05] MEDS: PERCOCET 5MG/325MG TAB PO PRN ×2 (05:59→15:07)
[2020-09-05] MEDS: SLF 3 ML SYR IV SCH ×3 (06:00→22:00)
[2020-09-05 06:09] VITALS: BP 103/55
--- NOTE | 2020-09-05 07:09 | IPNPDOC ---
Text Note Date of Service The patient was seen on 09/05/20. NOTE PO #1 Feels well. Adequate pain management. OOB independently. Voiding VSS, afebrile, normotensive Breasts soft Fundus firm, NT Dressing dry, intact Lochia rubra light without odor PO #1 Routine care. Anticipate D/C in am VS,Fishbone, I+O VS, Fishbone, I+O Vital Signs Date Time Temp Pulse Resp B/P (MAP) Pulse Ox O2 Delivery O2 Flow Rate FiO2 09/05/20 06:29 18 Room Air 09/05/20 06:09 98.8 76 103/55 (93) 99 I&O- Last 24 Hours up to 6 AM 09/05/20 06:00 Intake Total 2255 ml Output Total 1505 ml Balance 750 ml May Almaraz CNM September 05, 2020 07:09
[2020-09-05 08:26] LABS: HEMATOCRIT 27.3 % (36.0-47.0); HEMOGLOBIN 8.5 g/dl (12.0-15.5); MEAN CORPUSCULAR HEMOGLOBIN 28.6 pg (27.0-33.0); MEAN CORPUSCULAR HGB CONC 31.1 g/dl (32.0-36.5); MEAN CORPUSCULAR VOLUME 91.9 fl (80.0-96.0); PLATELET COUNT, AUTOMATED 203 10^3/uL (150-450); RED BLOOD COUNT 2.97 10^6/uL (4.00-5.40); WHITE BLOOD COUNT 11.5 10^3/uL (4.0-10.0)
[2020-09-05] MEDS: IBUPROFEN 800 MG TAB PO SCH ×2 (08:30→17:19)
[2020-09-05] MEDS: DOCUSATE SODIUM 100MG CAPSULE PO SCH ×2 (08:30→19:24)
[2020-09-05] MEDS: PRENATAL VITAMINS CHEWABLE TABLET PO SCH (08:30)
[2020-09-05 10:31] VITALS: BP 113/60
[2020-09-05 14:00] VITALS: BP 106/58
[2020-09-05 17:34] VITALS: BP 115/63
[2020-09-05 22:00] VITALS: BP 122/60
[2020-09-06] MEDS: IBUPROFEN 800 MG TAB PO SCH ×2 (00:25→09:13)
[2020-09-06] MEDS: SLF 3 ML SYR IV SCH (00:34)
[2020-09-06 02:00] VITALS: BP 115/57
[2020-09-06] MEDS: PERCOCET 5MG/325MG TAB PO PRN (05:21)
[2020-09-06 06:00] VITALS: BP 115/59
[2020-09-06] MEDS ORDERED: IBUP80TA PO (07:49)
[2020-09-06] MEDS: PRENATAL VITAMINS CHEWABLE TABLET PO SCH (09:13)
[2020-09-06] MEDS: DOCUSATE SODIUM 100MG CAPSULE PO SCH (09:13)
[2020-09-06] MEDS ORDERED: OXYC1TAB23 PO (09:37)
--- NOTE | 2020-09-23 13:17 | DS.PDOC ---
Discharge Summary General Date of Admission September 04, 2020 at 05:37 Date of Discharge September 06, 2020 Discharge Summary PROCEDURES PERFORMED DURING STAY: reepat section. ADMITTING DIAGNOSES: 1. 39 week, prior section x 2. DISCHARGE DIAGNOSES: 1. delivered. COMPLICATIONS/CHIEF COMPLAINT: Previous Section. HISTORY OF PRESENT ILLNESS: 24 yo female presents for repeat . no contractions. HOSPITAL COURSE: 24-year-old 0-2 female at 39-0/7 weeks gestation, presents for repeat section. She has a history of 2 prior sections. On 09/04/2020. She underwent repeat section for viable male . There were no complications. Her postoperative course was unremarkable. She had adequate return of bladder and bowel function. She was deemed stable for discharge on postoperative day #2. DISCHARGE MEDICATIONS: Please see below. ALLERGIES: Please see below. PHYSICAL EXAMINATION ON DISCHARGE: VITAL SIGNS: Please see below. GENERAL: WNL HEENT: NCAT CARDIOVASCULAR EXAMINATION: RRR RESPIRATORY EXAMINATION: Clear to auscultation ABDOMINAL EXAMINATION: Nontender, soft, nondistended EXTREMITIES: Nontender LABORATORY DATA: Please see below. PROGNOSIS: good ACTIVITY: As tolerated. DIET: Regular DISCHARGE PLAN: Home today DISPOSITION: 01 Home, Self-Care. DISCHARGE INSTRUCTIONS: 1. Discharge home. 2. Instructions reviewed DISCHARGE CONDITION: Stable. TIME SPENT ON DISCHARGE: Greater than 10 minutes. Discharge Medications Scheduled Ibuprofen (Ibuprofen) 800 Mg Tablet, 800 MG PO Q8H Vit,Calc76/Iron/Folic (Prenatabs Rx Tablet) 1 Each Tablet, 1 TAB PO DAILY, (Reported) Scheduled PRN Oxycodone HCl/Acetaminophen (Oxycodone-Acetaminophen 5-325) 1 Each Tablet, 1 TAB PO TIDP PRN for pain Miscellaneous Medications Iron,Carb/Vit C/Vit B12/Folic (Iron 100 Plus Tablet) 1 Each Tablet, 1 TAB PO, (Reported) Allergies Coded Allergies: Sulfa (Sulfonamide Antibiotics) (Verified Allergy, Intermediate, rash, 08/28/20) latex (Verified Allergy, Intermediate, rash, 08/28/20) OSCAR MORRISON MD Sep 23, 2020 13:17
== END 2020-09-06 12:00 | disposition home or self-care (01) | DRG 540 ==
LOC: M LDI 05:37 → M OBS 11:45
PROVIDERS: ADMIT Obstetrics & Gynecology; ATTEND Obstetrics & Gynecology
PROC: 10D00Z1 Extraction of Products of Conception, Low, Open Approach (ICD-10-PCS; principal; 2020-09-04 07:30)
DX: O34.211 Maternal care for low transverse scar from previous cesarean delivery (principal); Z3A.39 39 weeks gestation of pregnancy; Z37.0 Single live birth

== ENCOUNTER → 2020-12-11 | Outpatient (CLI) | payer OTHER ==
[~2020-12-11] MED LIST changes: +IBUP80TA PO
--- NOTE | 2020-12-11 13:27 | REP ---
INDICATION: PELVIC PAIN DATING VIABILITY COMPARISON: None. TECHNIQUE: Transabdominal and transvaginal obstetrical ultrasound with color Doppler evaluation. FINDINGS: Anteverted uterus with small irregular gestational sac without yolk sac or pole identified. Cervix measures 3.6 cm in length and appears closed. Right maternal ovary includes 6 cm simple cyst. No pelvic fluid or adnexal mass lesion. IMPRESSION: No intrauterine . Correlation with serial HCG level and repeat ultrasound as necessary. Differential diagnosis includes early as well as blighted ovum and less likely ectopic cannot be excluded. <Electronically signed by Chava Stubbs > 12/11/20 [id number]
== END ==
LOC: M WHC 12:26
PROVIDERS: ATTEND Advanced Practice Midwife
DX: R10.2 Pelvic and perineal pain (principal)

== ENCOUNTER → 2020-12-15 | Outpatient (CLI) | payer OTHER | LOC: M LAB 14:46 | PROVIDERS: ATTEND Advanced Practice Midwife | DX: R10.2 Pelvic and perineal pain (principal) ==

== ENCOUNTER 2020-12-31 12:17 | Emergency (ER) | payer OTHER ==
[~2020-12-31] VITALS: Ht 149.9 cm; Wt 99.9 kg
[2020-12-31 15:10] LABS: BASO % 0.3 % (0.0-1.0); EOS # 0.1 10^3/uL (0.0-0.5); EOS % 0.5 % (0.0-3.0); HEMATOCRIT 39.2 % (36.0-47.0); HEMOGLOBIN 12.5 g/dl (12.0-15.5); LYMPH # 2.1 10^3/uL (1.5-5.0); LYMPH % 18.6 % (24.0-44.0); MEAN CORPUSCULAR HEMOGLOBIN 27.8 pg (27.0-33.0); MEAN CORPUSCULAR HGB CONC 31.9 g/dl (32.0-36.5); MEAN CORPUSCULAR VOLUME 87.3 fl (80.0-96.0); MONO # 0.5 10^3/uL (0.0-0.8); MONO % 4.2 % (2.0-8.0); NEUTROPHILS # 8.6 10^3/uL (1.5-8.5); NEUTROPHILS % 76.1 % (36.0-66.0); PLATELET COUNT, AUTOMATED 318 10^3/uL (150-450); RED BLOOD COUNT 4.49 10^6/uL (4.00-5.40); WHITE BLOOD COUNT 11.3 10^3/uL (4.0-10.0)
[2020-12-31] MEDS ORDERED: NS 1,000 ML IV ONE (15:25)
[2020-12-31] MEDS ORDERED: ONDANSETRON 4MG/2ML VIAL IV ONE (15:25)
[2020-12-31 15:43] LABS: ALBUMIN 3.4 GM/DL (3.2-5.2); ALT/SGPT 30 U/L (12-78); BILIRUBIN,DIRECT < 0.1 MG/DL (0.0-0.2); BILIRUBIN,TOTAL 0.5 MG/DL (0.2-1.0); LIPASE 78 U/L (73-393); TOTAL PROTEIN 7.7 GM/DL (6.4-8.2)
[2020-12-31] MEDS: KETOROLAC 30 MG/ML 1ML VIAL IV ONE ×2 (16:08→16:25)
--- NOTE | 2020-12-31 17:03 | REP ---
INDICATION: abdominal pain, + . COMPARISON: 12/11/2020. TECHNIQUE: Real-time sonographic evaluation of pelvis performed. FINDINGS: There is a single living intrauterine gestation. The estimated gestational age is 8 weeks 1 day based on a crown-rump length of 17 mm. A yolk sac is also seen within the intrauterine gestational sac. EDC 08/11/2021. heart rate is 160 beats per minute. There is a subchorionic hemorrhage which measures 1.8 x 1.7 x 0.7 cm. There is a right ovarian cyst which measures 4.4 x 5.3 x 4.9 cm. Blood flow is seen in the right ovary with duplex Doppler evaluation, with no torsion. Left ovary is not visualized. IMPRESSION: Single living intrauterine gestation estimated gestational age 8 weeks 1 day EDC 08/11/2021. Small subchorionic hemorrhage 1.8 x 1.7 x 0.7 cm. Right ovarian cyst 4.4 x 5.3 x 4.9 cm with no right ovarian torsion. <Electronically signed by Bishop Calvert > 12/31/20 [id number]
[2020-12-31 17:17] LABS: HCG, SERUM QUANTITATIVE 108868 MIU/ML
--- NOTE | 2020-12-31 17:45 | REP ---
INDICATION: Periumbilical/luq pain () ? hernia. COMPARISON: None. TECHNIQUE: Real-time sonographic evaluation of left periumbilical abdominal wall performed. FINDINGS: There is no evidence of hernia in the left periumbilical abdominal wall. Deep to the left periumbilical abdominal wall, the gravid uterus is visualized. IMPRESSION: There is no evidence of hernia in the left periumbilical abdominal wall. Deep to the left periumbilical abdominal wall, the gravid uterus is visualized. <Electronically signed by Bishop Calvert > 12/31/20 [id number]
[2020-12-31] MEDS ORDERED: ONDA4TAB6 PO (18:05)
[2020-12-31 18:39] VITALS: BP 126/59
== END 2020-12-31 18:41 | disposition home or self-care (01) ==
LOC: M ED 12:17
DX: O20.8 Other hemorrhage in early pregnancy (principal); O34.81 Maternal care for other abnormalities of pelvic organs, first trimester; N83.201 Unspecified ovarian cyst, right side; O99.511 Diseases of the respiratory system complicating pregnancy, first trimester; J45.909 Unspecified asthma, uncomplicated; Z88.2 Allergy status to sulfonamides; Z3A.08 8 weeks gestation of pregnancy
CPT/HCPCS: 76705; 76801; 80076; 81001; 83690; 84702; 85025; 93976; 96361; 96374; 99284; J2405

== ENCOUNTER → 2021-01-22 | Outpatient (CLI) | payer OTHER ==
[~2021-01-22] MED LIST changes: +ONDA4TAB6 PO
== END ==
LOC: M LAB 17:49
PROVIDERS: ATTEND Obstetrics & Gynecology
DX: Z34.82 Encounter for supervision of other normal pregnancy, second trimester (principal); Z3A.00 Weeks of gestation of pregnancy not specified

== ENCOUNTER → 2021-02-02 | Outpatient (CLI) | payer OTHER ==
[~2021-02-02] MED LIST changes: -IBUP200T45 PO; +IBUP200T46 PO
[2021-02-02 14:27] LABS: BASO % 0.1 % (0.0-1.0); EOS # 0.1 10^3/uL (0.0-0.5); EOS % 1.4 % (0.0-3.0); HEMATOCRIT 36.9 % (36.0-47.0); HEMOGLOBIN 11.6 g/dl (12.0-15.5); LYMPH # 1.9 10^3/uL (1.5-5.0); LYMPH % 22.2 % (24.0-44.0); MEAN CORPUSCULAR HEMOGLOBIN 28.4 pg (27.0-33.0); MEAN CORPUSCULAR HGB CONC 31.4 g/dl (32.0-36.5); MEAN CORPUSCULAR VOLUME 90.2 fl (80.0-96.0); MONO # 0.3 10^3/uL (0.0-0.8); MONO % 3.8 % (2.0-8.0); NEUTROPHILS # 6.1 10^3/uL (1.5-8.5); PLATELET COUNT, AUTOMATED 299 10^3/uL (150-450); RED BLOOD COUNT 4.09 10^6/uL (4.00-5.40); WHITE BLOOD COUNT 8.5 10^3/uL (4.0-10.0)
[2021-02-02 14:50] LABS: GLUCOSE CHALLENGE TEST 1 HOUR 87 MG/DL (LESS THAN 140)
[2021-02-02 15:42] LABS: HEPATITIS C VIRUS ABY INDEX < 0.0 INDEX (<0.8); HIV 1&2 SCREEN CENTAUR NEGATIVE (NEGATIVE)
[2021-02-02 16:47] LABS: GC DNA AMPLIFICATION NEGATIVE (NEGATIVE)
== END ==
LOC: M PLALAB 10:39
PROVIDERS: ATTEND Obstetrics & Gynecology
DX: Z34.81 Encounter for supervision of other normal pregnancy, first trimester (principal); Z3A.11 11 weeks gestation of pregnancy

== ENCOUNTER → 2021-02-02 | Outpatient (CLI) | payer OTHER ==
--- NOTE | 2021-02-02 13:40 | REP ---
INDICATION: DATING AND VIABILITY. COMPARISON: None. TECHNIQUE: Transabdominal scanning FINDINGS: Multiple ultrasonographic images of the gravid uterus shows a single living intrauterine gestation in variable positions. The placenta is anterior and not low-lying. Doppler interrogation of the heart shows a heart rate of 149 beats per minute. BPD: 2 cm 13 weeks 1 day HC: 7.5 cm 13 weeks 1 day AC: 5.9 cm 12 weeks 5 days FL: 0.9 cm 12 weeks 5 days Seen in the right ovary 2.6 x 2.4 x 2.6 cm sized cyst was identified likely a corpus luteum cyst. IMPRESSION: Single living intrauterine gestation as described above with an estimated gestational age of 12 weeks 6 days via composite criteria and an estimated date of delivery of 08/11/2021 by today's exam. The estimated weight is 63 g. <Electronically signed by Chris Soto > 02/02/21 [id number]
== END ==
LOC: M WHC 10:07
PROVIDERS: ATTEND Obstetrics & Gynecology
DX: Z36.89 Encounter for other specified antenatal screening (principal); Z3A.12 12 weeks gestation of pregnancy

== ENCOUNTER → 2021-02-16 | Outpatient (REF) | payer OTHER ==
[2021-02-16 18:22] LABS: APPEARANCE, URINE CLOUDY (CLEAR); BACTERIA, URINE AUTO 1+ (NEGATIVE); BILIRUBIN, URINE AUTO NEGATIVE (NEGATIVE); BLOOD, URINE BLOOD 2+ (NEGATIVE); COLOR, URINE YELLOW (YELLOW); GLUCOSE, URINE (UA) AUTO NEGATIVE (NEGATIVE); KETONE, URINE AUTO NEGATIVE (NEGATIVE); LEUKOCYTE ESTERASE, URINE AUTO 3+ (NEGATIVE); MUCUS, URINE SMALL (NEGATIVE); NITRITE, URINE AUTO NEGATIVE (NEGATIVE); PROTEIN, URINE AUTO 1+ mg/dL (NEGATIVE); RBC, URINE AUTO 17 /HPF (0-3); SPECIFIC GRAVITY URINE AUTO 1.021 (1.002-1.035); SQUAMOUS EPITHELIAL CELL UR AU 1 /HPF (0-6); UROBILINOGEN, URINE AUTO 0.2 mg/dL (0.0-2.0); WBC, URINE AUTO TNTC /HPF (0-3)
== END ==
LOC: M SFHCWAGY 17:22
PROVIDERS: ATTEND Obstetrics & Gynecology
DX: Z34.92 Encounter for supervision of normal pregnancy, unspecified, second trimester (principal); Z3A.00 Weeks of gestation of pregnancy not specified

== ENCOUNTER → 2021-03-19 | Outpatient (CLI) | payer OTHER ==
--- NOTE | 2021-03-19 19:45 | REP ---
INDICATION: ANATOMY. COMPARISON: Comparison sonography February 02, 2021. TECHNIQUE: Transabdominal obstetric sonography. FINDINGS: Scanning through the gravid uterus demonstrates a viable single intrauterine gestation in variable lie. motion is observed and heart rate is recorded at 152 beats per minute. A posterior placenta is seen, grade 1, without evidence of placenta previa. Closed cervical length is measured at 3.9 cm transabdominally. No extrauterine abnormality is observed. Amniotic fluid is subjectively normal. No anomaly is seen. The following anatomic structures are identified and felt to be sonographically unremarkable: cranium, choroid plexus, cavum, cerebellum and posterior fossa, face and profile, lungs, four-chamber heart with left and right ventricular outflow tract views, diaphragm, left-sided stomach, abdominal wall cord insertion, three-vessel umbilical cord, kidneys and bladder, spine, and upper and lower extremities. Biometry chart: BPD 4.2 cm, 18 weeks 5 days Head circumference 16.4 cm, 19 weeks 1 day Abdominal circumference 13.5 cm, 19 weeks 0 days Femur length 3.0 cm, 19 weeks 3 days Humeral length 2.8 cm, 19 weeks 1 day HC AC ratio normal 1.21 Cephalic index 0.69 Estimated weight 276 g, 0 lb 9 oz, 41st percentile for 19 weeks 2 days. IMPRESSION: Viable single intrauterine gestation at 19 weeks 0 days by today's composite sonographic criteria. VENU by today's sonography 13 August 2021. No complication identified. Expected gestational age estimate based on prior sonography 19 weeks 2 days, VENU by prior sonography August 11, 2021. <Electronically signed by Denton Gustafson > 03/19/211940
== END ==
LOC: M WHC 08:53
PROVIDERS: ATTEND Obstetrics & Gynecology
DX: Z36.3 Encounter for antenatal screening for malformations (principal); Z3A.19 19 weeks gestation of pregnancy

== ENCOUNTER → 2021-04-02 | Outpatient (REF) | payer OTHER ==
[2021-04-02 22:14] LABS: RSV AMPLIFICATION NEGATIVE (NEGATIVE)
== END ==
LOC: M LAB REF 21:20
PROVIDERS: ATTEND Physician Assistant
DX: R50.9 Fever, unspecified (principal); R19.7 Diarrhea, unspecified

== ENCOUNTER → 2021-05-21 | Outpatient (CLI) | payer OTHER ==
[2021-05-21 17:33] LABS: HEMATOCRIT 29.9 % (36.0-47.0); HEMOGLOBIN 9.4 g/dl (12.0-15.5); MEAN CORPUSCULAR HEMOGLOBIN 29.2 pg (27.0-33.0); MEAN CORPUSCULAR HGB CONC 31.4 g/dl (32.0-36.5); MEAN CORPUSCULAR VOLUME 92.9 fl (80.0-96.0); PLATELET COUNT, AUTOMATED 240 10^3/uL (150-450); RED BLOOD COUNT 3.22 10^6/uL (4.00-5.40)
[2021-05-21 19:14] LABS: GC DNA AMPLIFICATION NEGATIVE (NEGATIVE)
== END ==
LOC: M PLALAB 14:08
PROVIDERS: ATTEND Advanced Practice Midwife
DX: Z34.82 Encounter for supervision of other normal pregnancy, second trimester (principal); Z3A.22 22 weeks gestation of pregnancy

== ENCOUNTER 2021-06-28 13:33 | Emergency (ER) | payer OTHER ==
[2021-06-28 13:34] VITALS: BP 124/57
[2021-06-28] MEDS ORDERED: PRENTAB9 PO (14:19)
[2021-06-28] MEDS ORDERED: FERR325T82 PO (14:19)
== END 2021-06-28 14:04 | disposition admitted as inpatient to this hospital (09) ==
LOC: M ED 13:33
DX: Z53.9 Procedure and treatment not carried out, unspecified reason (principal)

== ENCOUNTER 2021-07-07 07:18 | Outpatient (CLI) | payer OTHER ==
[~2021-07-07] VITALS: Ht 175.3 cm; Wt 103.1 kg
[2021-07-07] MEDS ORDERED: IRON SUCROSE 500 MG in NS 250 ML OVER 4 HRS IV ONE (07:30)
[2021-07-07 07:40] VITALS: BP 138/60
[2021-07-07 08:30] VITALS: BP 113/55
[2021-07-07 09:30] VITALS: BP 124/56
[2021-07-07 10:30] VITALS: BP 116/53
[2021-07-07 11:30] VITALS: BP 116/55
[2021-07-07 12:18] VITALS: BP 115/57
== END 2021-07-07 12:20 | disposition home or self-care (01) ==
LOC: M INFU 07:18
PROVIDERS: ATTEND Advanced Practice Midwife
DX: D64.9 Anemia, unspecified (principal); Z88.2 Allergy status to sulfonamides; Z91.040 Latex allergy status
CPT/HCPCS: 96365; 96366; J1756

== ENCOUNTER → 2021-07-12 | Outpatient (REF) | payer OTHER | LOC: M SFHCWAGY 16:49 | PROVIDERS: ATTEND Specialist | DX: Z36.85 Encounter for antenatal screening for Streptococcus B (principal) ==

== ENCOUNTER 2021-12-16 14:13 | Emergency (ER) | payer OTHER ==
[~2021-12-16] VITALS: Ht 149.9 cm; Wt 101.5 kg
[~2021-12-16 14:13] MED LIST changes: +OMEP40CA5 PO
[2021-12-16 16:04] LABS: RSV AMPLIFICATION NEGATIVE (NEGATIVE)
[2021-12-16] MEDS ORDERED: ACETAMINOPHEN 500 MG TAB PO ONE (18:15)
[2021-12-16] MEDS ORDERED: NS 1,000 ML IV ONE (18:15)
[2021-12-16 18:48] LABS: BASO % 0.2 % (0.0-1.0); EOS # 0.1 10^3/uL (0.0-0.5); EOS % 0.4 % (0.0-3.0); HEMATOCRIT 38.7 % (36.0-47.0); HEMOGLOBIN 12.4 g/dl (12.0-15.5); LYMPH # 1.3 10^3/uL (1.5-5.0); LYMPH % 10.3 % (24.0-44.0); MEAN CORPUSCULAR HEMOGLOBIN 28.8 pg (27.0-33.0); MEAN CORPUSCULAR VOLUME 89.8 fl (80.0-96.0); MONO # 0.5 10^3/uL (0.0-0.8); MONO % 4.2 % (2.0-8.0); NEUTROPHILS # 10.5 10^3/uL (1.5-8.5); NEUTROPHILS % 84.6 % (36.0-66.0); PLATELET COUNT, AUTOMATED 284 10^3/uL (150-450); RED BLOOD COUNT 4.31 10^6/uL (4.00-5.40); WHITE BLOOD COUNT 12.4 10^3/uL (4.0-10.0)
[2021-12-16 19:15] LABS: ALBUMIN 3.9 GM/DL (3.2-5.2); ALT/SGPT 36 U/L (12-78); BILIRUBIN,DIRECT 0.2 MG/DL (0.0-0.2); BILIRUBIN,TOTAL 0.7 MG/DL (0.2-1.0); BLOOD UREA NITROGEN 11 MG/DL (7-18); CALCIUM LEVEL 8.7 MG/DL (8.5-10.1); CARBON DIOXIDE LEVEL 26 MEQ/L (21-32); CHLORIDE LEVEL 105 MEQ/L (98-107); CREATININE FOR GFR 0.87 MG/DL (0.55-1.30); GLOMERULAR FILTRATION RATE > 60.0 (>60); GLUCOSE, FASTING 92 MG/DL (70-100); LIPASE 102 U/L (73-393); POTASSIUM SERUM 3.9 MEQ/L (3.5-5.1); SODIUM LEVEL 137 MEQ/L (136-145)
[2021-12-16 20:22] VITALS: BP 118/72
== END 2021-12-16 20:49 | disposition home or self-care (01) ==
LOC: M ED 14:13
DX: N83.291 Other ovarian cyst, right side (principal); Z88.2 Allergy status to sulfonamides

== ENCOUNTER 2021-12-25 23:13 | Emergency (ER) | payer OTHER ==
[~2021-12-25] VITALS: Ht 149.9 cm; Wt 102.3 kg
[2021-12-26] MEDS ORDERED: LIDOCAINE 1% MDV 20ML VIAL SC ONE (01:10)
[2021-12-26] MEDS ORDERED: BACI500O8 TOP (01:34)
[2021-12-26] MEDS ORDERED: NEOSPORIN OINT 0.9 GM PKT TOP ONE (01:35)
[2021-12-26 01:39] VITALS: BP 130/71
== END 2021-12-26 01:53 | disposition home or self-care (01) ==
LOC: M ED 23:13
DX: S81.812A Laceration without foreign body, left lower leg, initial encounter (principal); W22.8XXA Striking against or struck by other objects, initial encounter; Y92.018 Other place in single-family (private) house as the place of occurrence of the external cause; G43.909 Migraine, unspecified, not intractable, without status migrainosus; Z88.2 Allergy status to sulfonamides; Z91.040 Latex allergy status

== ENCOUNTER 2021-12-28 15:53 | Emergency (ER) | payer OTHER ==
[~2021-12-28] VITALS: Ht 149.9 cm; Wt 102.3 kg
[~2021-12-28 15:53] MED LIST changes: +BACI500O8 TOP
[2021-12-28 15:54] VITALS: BP 135/86
[2021-12-28] MEDS ORDERED: CEPH500T (16:01)
== END 2021-12-28 18:00 | disposition home or self-care (01) ==
LOC: M ED 15:53
DX: L03.116 Cellulitis of left lower limb (principal); Z88.2 Allergy status to sulfonamides; Z91.040 Latex allergy status

== ENCOUNTER → 2022-01-12 | Outpatient (CLI) | payer OTHER ==
[~2022-01-12] MED LIST changes: +CEPH500T
== END ==
LOC: M WHC 11:07
PROVIDERS: ATTEND Obstetrics & Gynecology
DX: N83.201 Unspecified ovarian cyst, right side (principal); Z90.721 Acquired absence of ovaries, unilateral

== ENCOUNTER → 2022-05-18 | Outpatient (REF) | payer OTHER ==
[2022-05-18 14:43] LABS: BASO % 0.3 % (0.0-1.0); EOS # 0.1 10^3/uL (0.0-0.5); EOS % 1.7 % (0.0-3.0); LYMPH # 2.1 10^3/uL (1.5-5.0); LYMPH % 29.4 % (24.0-44.0); MEAN CORPUSCULAR HEMOGLOBIN 28.4 pg (27.0-33.0); MEAN CORPUSCULAR HGB CONC 30.8 g/dl (32.0-36.5); MEAN CORPUSCULAR VOLUME 92.4 fl (80.0-96.0); MONO # 0.5 10^3/uL (0.0-0.8); MONO % 7.1 % (2.0-8.0); NEUTROPHILS # 4.4 10^3/uL (1.5-8.5); NEUTROPHILS % 61.2 % (36.0-66.0); PLATELET COUNT, AUTOMATED 344 10^3/uL (150-450); RED BLOOD COUNT 4.22 10^6/uL (4.00-5.40); WHITE BLOOD COUNT 7.2 10^3/uL (4.0-10.0)
[2022-05-18 15:21] LABS: ALBUMIN 3.8 G/DL (3.2-5.2); ALKALINE PHOSPHATASE 80 U/L (46-116); ALT/SGPT 21 U/L (7.0-40); AST/SGOT 22 U/L (<34); BILIRUBIN,TOTAL 0.5 MG/DL (0.3-1.2); BLOOD UREA NITROGEN 13 MG/DL (9-23); CALCIUM LEVEL 8.3 MG/DL (8.5-10.1); CARBON DIOXIDE LEVEL 26 MMOL/L (20-31); CHLORIDE LEVEL 107 MMOL/L (98-107); CHOLESTEROL LEVEL 142 MG/DL (<200); CREATININE FOR GFR 0.81 MG/DL (0.55-1.30); FREE T4 1.23 NG/DL (0.89-1.76); GLOMERULAR FILTRATION RATE > 60.0 (>60); GLUCOSE, FASTING 96 MG/DL (60-100); HDL CHOLESTEROL 34.6 MG/DL (>40); LDL CHOLESTEROL 86.4 MG/DL (<100); NON-HDL-C 107 MG/DL; POTASSIUM SERUM 4.7 MMOL/L (3.5-5.1); SODIUM LEVEL 139 MMOL/L (136-145); THYROID STIMULATING HORMONE 2.035 uIU/ML (0.55-4.78); TOTAL 25(OH) VITAMIN D 16.5 NG/ML (20.0-100.0); TOTAL PROTEIN 7.2 G/DL (5.7-8.2); TRIGLYCERIDES LEVEL 105 MG/DL (<150)
[2022-05-18 15:45] LABS: HEMOGLOBIN A1c 4.7 % (4.0-6.0)
== END ==
LOC: M LAB REF 13:02
PROVIDERS: ATTEND Nurse Practitioner Family
DX: Z13.228 Encounter for screening for other metabolic disorders (principal)

== ENCOUNTER → 2022-06-13 | Outpatient (CLI) | payer OTHER | LOC: M WHC 10:28 | PROVIDERS: ATTEND Obstetrics & Gynecology | DX: N83.201 Unspecified ovarian cyst, right side (principal) ==

== ENCOUNTER → 2022-07-08 | Outpatient (CLI) | payer OTHER ==
[~2022-07-08] MED LIST changes: +ACET325C5 PO; +ERGO500029
== END ==
LOC: M LABSMTC 08:32
PROVIDERS: ATTEND Anesthesiology
DX: Z01.818 Encounter for other preprocedural examination (principal); Z11.52 Encounter for screening for COVID-19

== ENCOUNTER 2022-07-13 12:09 | Day surgery (SDC) | payer OTHER ==
[~2022-07-13] VITALS: Ht 149.9 cm; Wt 107.2 kg
[~2022-07-13 12:09] MED LIST changes: +CelecoXIB 400 MG CAP PO ONE; +LIDOCAINE 2% 100MG/5ML SDV (FOR ANES.) As Ordered ONE; +MIDAZOLAM INJ 2MG/2ML VIAL As Ordered ONE; +ROCURONIUM BROMIDE 50MG/5ML VIAL As Ordered ONE; +fentaNYL 100 MCG/2 ML INJECTION As Ordered ONE; +propofoL 200 MG/20 ML VIAL As Ordered ONE
[2022-07-13] MEDS ORDERED: LIDOCAINE 1% SDV 30ML VIAL As Ordered ONE (12:44)
[2022-07-13] MEDS ORDERED: BUPIVACAINE HCL 0.25% 30ML VIAL As Ordered ONE (12:44)
[2022-07-13] MEDS ORDERED: BUPIVACAINE LIPOSOME/PF 1.3% 20ML VIAL (13.3MG/ML)(EXPAREL) As Ordered ONE (12:44)
[2022-07-13] MEDS ORDERED: BUPIVACAINE HCL 0.25% 10ML VIAL As Ordered ONE (12:44)
[2022-07-13] MEDS ORDERED: LR 1,000 ML IV SCH ×2 (12:45→16:40)
[2022-07-13] MEDS ORDERED: ceFAZolin SOD 2 GM in IV 1 EA IV ONE (12:45)
[2022-07-13] MEDS ORDERED: HYDROmorphone HCL 2MG/ML 1ML VIAL As Ordered ONE (13:33)
[2022-07-13] MEDS ORDERED: KETOROLAC 60MG 2ML VIAL As Ordered ONE (13:34)
[2022-07-13] MEDS ORDERED: METOCLOPRAMIDE INJ 10MG/2ML VIAL As Ordered ONE (13:34)
[2022-07-13] MEDS ORDERED: ONDANSETRON 4MG 2ML VIAL As Ordered ONE (13:34)
[2022-07-13] MEDS ORDERED: SUGAMMADEX SODIUM 500 MG/5 ML VIAL (BRIDION) As Ordered ONE (13:35)
[2022-07-13] MEDS ORDERED: ROCURONIUM BROMIDE 50MG/5ML VIAL As Ordered ONE (13:35)
[2022-07-13] MEDS ORDERED: ACETAMINOPHEN 1000MG 100ML IV BAG As Ordered ONE (13:42)
[2022-07-13] MEDS ORDERED: oxyCODONE 5MG TAB PO PRN (16:40)
[2022-07-13] MEDS ORDERED: ONDANSETRON 4MG 2ML VIAL IV PRN (16:40)
[2022-07-13] MEDS ORDERED: HYDROMORPHONE HCL 0.5 MG/ 0.5 ML SYRINGE IV PRN (16:40)
[2022-07-13] MEDS ORDERED: NORCO, ANEXSIA 5/325MG TABLET (HYDROcodone/ACETAMINOPHEN) PO PRN ×2 (17:05→17:10)
[2022-07-13] MEDS: fentaNYL 100 MCG/2 ML INJECTION IV PRN ×4 (17:22→17:58)
[2022-07-13] MEDS ORDERED: diphenhydrAMINE 50MG/ML VIAL IV PRN (17:35)
[2022-07-13 18:45] VITALS: BP 133/69
[2022-07-13] MEDS ORDERED: KETOROLAC 30 MG/ML 1ML VIAL IV SCH (22:30)
== END 2022-07-13 19:00 | disposition home or self-care (01) ==
LOC: M SDC 12:09
PROVIDERS: ATTEND Surgery
DX: K42.9 Umbilical hernia without obstruction or gangrene (principal); M62.08 Separation of muscle (nontraumatic), other site; N99.4 Postprocedural pelvic peritoneal adhesions; G43.909 Migraine, unspecified, not intractable, without status migrainosus; J32.9 Chronic sinusitis, unspecified; E66.01 Morbid (severe) obesity due to excess calories; Z68.42 Body mass index [BMI] 45.0-49.9, adult; K21.9 Gastro-esophageal reflux disease without esophagitis; Z91.040 Latex allergy status; Z88.2 Allergy status to sulfonamides
CPT/HCPCS: 49593; 64488; C9290; J0131; J1100; J1170; J1200; J1885; J2250; J2405; J2765; J3010; S2900

== ENCOUNTER → 2022-08-25 | Outpatient (REF) | payer OTHER ==
[~2022-08-25] MED LIST changes: -CelecoXIB 400 MG CAP PO ONE; -LIDOCAINE 2% 100MG/5ML SDV (FOR ANES.) As Ordered ONE; -MIDAZOLAM INJ 2MG/2ML VIAL As Ordered ONE; -ROCURONIUM BROMIDE 50MG/5ML VIAL As Ordered ONE; -fentaNYL 100 MCG/2 ML INJECTION As Ordered ONE; -propofoL 200 MG/20 ML VIAL As Ordered ONE
== END ==
LOC: M LAB REF 16:41
PROVIDERS: ATTEND Nurse Practitioner Family
DX: J02.9 Acute pharyngitis, unspecified (principal)

== ENCOUNTER → 2022-09-14 | Outpatient (CLI) | payer OTHER ==
[2022-09-15 16:09] LABS: EBV AB TO NUCLEAR ANTIGEN 27.1 U/mL (0.0-17.9); EBV VIRAL CAPSID AG IgG 69.5 U/mL (0.0-17.9); EBV VIRAL CAPSID AG IgM <36.0 U/mL (0.0-35.9)
== END ==
LOC: M LAB 11:38
PROVIDERS: ATTEND Otolaryngology
DX: J35.01 Chronic tonsillitis (principal)

== ENCOUNTER → 2022-10-12 | Outpatient (CLI) | payer OTHER | LOC: M WHC 09:35 | PROVIDERS: ATTEND Obstetrics & Gynecology | DX: N64.52 Nipple discharge (principal) ==

== ENCOUNTER → 2022-12-20 | Outpatient (CLI) | payer OTHER ==
[~2022-12-20] MED LIST changes: +GASTROGRAFIN SOLUTION 30ML As Ordered ONE; +ISOVUE-370 76% 100ML VIAL As Ordered ONE
== END ==
LOC: M RAD 07:47
PROVIDERS: ATTEND Surgery
DX: R10.31 Right lower quadrant pain (principal)
CPT/HCPCS: 74177; Q9963; Q9967

== ENCOUNTER → 2022-12-27 | Outpatient (REF) | payer OTHER ==
[~2022-12-27] MED LIST changes: -GASTROGRAFIN SOLUTION 30ML As Ordered ONE; -ISOVUE-370 76% 100ML VIAL As Ordered ONE
== END ==
LOC: M SFHCWAGY 13:37
PROVIDERS: ATTEND Obstetrics & Gynecology
DX: Z12.4 Encounter for screening for malignant neoplasm of cervix (principal)

== ENCOUNTER → 2023-01-16 | Outpatient (CLI) | payer OTHER ==
[~2023-01-16] MED LIST changes: +ISOVUE-370 76% 100ML VIAL ONE
== END ==
LOC: M PLAIMG 13:10
PROVIDERS: ATTEND Otolaryngology
DX: J35.01 Chronic tonsillitis (principal)
CPT/HCPCS: 70491; Q9967

== ENCOUNTER → 2023-04-21 | Outpatient (CLI) | payer OTHER ==
[~2023-04-21] MED LIST changes: +CALC500C16 PO; -ERGO500029; +ERGO500029 PO; -ISOVUE-370 76% 100ML VIAL ONE; +LEVO150T7 PO
== END ==
LOC: M RAD 11:46
PROVIDERS: ATTEND Obstetrics & Gynecology
DX: Z87.42 Personal history of other diseases of the female genital tract (principal); R93.89 Abnormal findings on diagnostic imaging of other specified body structures

== ENCOUNTER → 2023-05-08 | Outpatient (REF) | payer OTHER ==
[2023-05-08 18:16] LABS: BASO % 0.3 % (0.0-1.0); EOS # 0.3 10^3/uL (0.0-0.5); EOS % 2.7 % (0.0-3.0); HEMATOCRIT 33.9 % (36.0-47.0); HEMOGLOBIN 10.7 g/dl (12.0-15.5); LYMPH # 2.7 10^3/uL (1.5-5.0); LYMPH % 28.8 % (24.0-44.0); MEAN CORPUSCULAR HEMOGLOBIN 28.8 pg (27.0-33.0); MEAN CORPUSCULAR HGB CONC 31.6 g/dl (32.0-36.5); MEAN CORPUSCULAR VOLUME 91.1 fl (80.0-96.0); MONO # 0.4 10^3/uL (0.0-0.8); NEUTROPHILS # 5.9 10^3/uL (1.5-8.5); NEUTROPHILS % 63.9 % (36.0-66.0); PLATELET COUNT, AUTOMATED 278 10^3/uL (150-450); RED BLOOD COUNT 3.72 10^6/uL (4.00-5.40); WHITE BLOOD COUNT 9.3 10^3/uL (4.0-10.0)
[2023-05-08 18:38] LABS: ALBUMIN 3.7 G/DL (3.2-5.2); ALKALINE PHOSPHATASE 60 U/L (46-116); ALT/SGPT 28 U/L (7.0-40); AST/SGOT 42 U/L (<34); BILIRUBIN,TOTAL 0.5 MG/DL (0.3-1.2); BLOOD UREA NITROGEN 22 MG/DL (9-23); CALCIUM LEVEL 7.7 MG/DL (8.5-10.1); CARBON DIOXIDE LEVEL 29 MMOL/L (20-31); CHLORIDE LEVEL 104 MMOL/L (98-107); CHOLESTEROL LEVEL 234 MG/DL (<200); CHOLESTEROL RISK RATIO 5.58 (<5); CREATININE FOR GFR 1.28 MG/DL (0.55-1.30); GLOMERULAR FILTRATION RATE 52.9 (>60); GLUCOSE, FASTING 77 MG/DL (60-100); HDL CHOLESTEROL 41.9 MG/DL (>40); LDL CHOLESTEROL 152.1 MG/DL (<100); NON-HDL-C 192.1 MG/DL; POTASSIUM SERUM 4.3 MMOL/L (3.5-5.1); SODIUM LEVEL 141 MMOL/L (136-145); TOTAL PROTEIN 7.3 G/DL (5.7-8.2); TRIGLYCERIDES LEVEL 200 MG/DL (<150)
[2023-05-08 18:40] LABS: TOTAL 25(OH) VITAMIN D 18.6 NG/ML (20.0-100.0)
[2023-05-08 18:56] LABS: THYROID STIMULATING HORMONE > 150.000 uIU/ML (0.55-4.78)
[2023-05-08 19:07] LABS: HEMOGLOBIN A1c 4.9 % (4.0-6.0)
== END ==
LOC: M LAB REF 17:14
PROVIDERS: ATTEND Nurse Practitioner Family
DX: E66.01 Morbid (severe) obesity due to excess calories (principal); E55.9 Vitamin D deficiency, unspecified

== ENCOUNTER → 2023-05-09 | Outpatient (CLI) | payer OTHER | LOC: M WHC 08:47 | PROVIDERS: ATTEND Obstetrics & Gynecology | DX: R92.8 Other abnormal and inconclusive findings on diagnostic imaging of breast (principal) ==

== ENCOUNTER 2023-05-12 09:36 | Emergency (ER) | payer OTHER ==
[~2023-05-12] VITALS: Ht 149.9 cm; Wt 109.1 kg
[2023-05-12] MEDS ORDERED: NS 1,000 ML IV ONE (13:10)
[2023-05-12] MEDS ORDERED: diphenhydrAMINE 50MG/ML VIAL IV ONE (13:10)
[2023-05-12] MEDS ORDERED: dexAMETHasone 20MG/5ML VIAL IV ONE (13:10)
[2023-05-12] MEDS ORDERED: METOCLOPRAMIDE INJ 10MG/2ML VIAL IV ONE (13:10)
[2023-05-12 13:42] LABS: BASO % 0.4 % (0.0-1.0); EOS # 0.2 10^3/uL (0.0-0.5); EOS % 2.8 % (0.0-3.0); HEMATOCRIT 38.8 % (36.0-47.0); HEMOGLOBIN 12.4 g/dl (12.0-15.5); LYMPH # 2.5 10^3/uL (1.5-5.0); LYMPH % 29.4 % (24.0-44.0); MEAN CORPUSCULAR HEMOGLOBIN 29.2 pg (27.0-33.0); MEAN CORPUSCULAR VOLUME 91.5 fl (80.0-96.0); MONO # 0.3 10^3/uL (0.0-0.8); MONO % 3.2 % (2.0-8.0); NEUTROPHILS # 5.4 10^3/uL (1.5-8.5); NEUTROPHILS % 63.7 % (36.0-66.0); PLATELET COUNT, AUTOMATED 324 10^3/uL (150-450); RED BLOOD COUNT 4.24 10^6/uL (4.00-5.40); WHITE BLOOD COUNT 8.5 10^3/uL (4.0-10.0)
[2023-05-12 13:54] LABS: ERYTHROCYTE SEDIMENTATION RATE 68 mm/hr (0-20)
[2023-05-12 14:04] LABS: BLOOD UREA NITROGEN 14 MG/DL (9-23); CALCIUM LEVEL 8.5 MG/DL (8.5-10.1); CARBON DIOXIDE LEVEL 28 MMOL/L (20-31); CHLORIDE LEVEL 104 MMOL/L (98-107); CREATININE FOR GFR 1.06 MG/DL (0.55-1.30); GLOMERULAR FILTRATION RATE > 60.0 (>60); GLUCOSE, FASTING 85 MG/DL (60-100); MAGNESIUM LEVEL 1.7 MG/DL (1.8-2.4); POTASSIUM SERUM 4.7 MMOL/L (3.5-5.1); SODIUM LEVEL 133 MMOL/L (136-145)
[2023-05-12 14:05] LABS: HCG, SERUM QUALITATIVE NEGATIVE (NEGATIVE)
[2023-05-12 21:29] VITALS: BP 130/82; TEMP 98.4; O2SAT 97
== END 2023-05-12 21:42 | disposition home or self-care (01) ==
LOC: M ED 09:36
DX: R20.2 Paresthesia of skin (principal); G43.809 Other migraine, not intractable, without status migrainosus; R00.1 Bradycardia, unspecified; Z88.1 Allergy status to other antibiotic agents; Z88.2 Allergy status to sulfonamides; Z91.040 Latex allergy status; Z79.1 Long term (current) use of non-steroidal anti-inflammatories (NSAID); Z79.890 Hormone replacement therapy; Z79.899 Other long term (current) drug therapy
CPT/HCPCS: 70450; 70544; 70551; 80048; 83735; 84703; 85025; 85652; 86140; 93005; 96360; 96361; 96375; 99284; J1100; J1200; J2765

== ENCOUNTER → 2023-05-22 | Outpatient (REF) | payer OTHER | LOC: M LAB REF 16:03 | PROVIDERS: ATTEND Physician Assistant | DX: B34.9 Viral infection, unspecified (principal) ==

== ENCOUNTER 2023-06-15 10:21 | Emergency (ER) | payer OTHER ==
[~2023-06-15] VITALS: Ht 149.9 cm; Wt 109.8 kg
[2023-06-15 11:42] LABS: RSV AMPLIFICATION NEGATIVE (NEGATIVE)
[2023-06-15 12:27] VITALS: BP 98/70; TEMP 99.9; O2SAT 98
== END 2023-06-15 12:30 | disposition home or self-care (01) ==
LOC: M ED 10:21
DX: J06.9 Acute upper respiratory infection, unspecified (principal); E03.9 Hypothyroidism, unspecified; Z85.850 Personal history of malignant neoplasm of thyroid; Z79.899 Other long term (current) drug therapy; Z88.2 Allergy status to sulfonamides; Z91.040 Latex allergy status

== ENCOUNTER 2023-07-10 21:20 | Emergency (ER) | payer OTHER ==
[~2023-07-10] VITALS: Ht 149.9 cm; Wt 109.2 kg
[2023-07-10] MEDS ORDERED: CALC1CAP31 (21:26)
[2023-07-11 00:12] VITALS: BP 128/84; TEMP 97.7; O2SAT 100
== END 2023-07-11 00:16 | disposition home or self-care (01) ==
LOC: M ED 21:20
DX: S93.431A Sprain of tibiofibular ligament of right ankle, initial encounter (principal); W01.0XXA Fall on same level from slipping, tripping and stumbling without subsequent striking against object, initial encounter; Y92.009 Unspecified place in unspecified non-institutional (private) residence as the place of occurrence of the external cause; Y93.89 Activity, other specified; Y99.9 Unspecified external cause status; Z88.2 Allergy status to sulfonamides; Z91.040 Latex allergy status; Z79.899 Other long term (current) drug therapy; Z79.890 Hormone replacement therapy

== ENCOUNTER 2023-09-15 09:42 | Day surgery (SDC) | payer OTHER ==
[~2023-09-15] VITALS: Ht 149.9 cm; Wt 107.5 kg
[~2023-09-15 09:42] MED LIST changes: +CALC1CAP31; +LEVO175T2 PO
[2023-09-15] MEDS ORDERED: LR 1,000 ML IV SCH ×2 (09:45→13:20)
[2023-09-15 10:16] LABS: HEMATOCRIT 33.4 % (36.0-47.0); HEMOGLOBIN 10.7 g/dl (12.0-15.5); MEAN CORPUSCULAR HEMOGLOBIN 30.5 pg (27.0-33.0); MEAN CORPUSCULAR VOLUME 95.2 fl (80.0-96.0); PLATELET COUNT, AUTOMATED 341 10^3/uL (150-450); RED BLOOD COUNT 3.51 10^6/uL (4.00-5.40); WHITE BLOOD COUNT 7.8 10^3/uL (4.0-10.0)
[2023-09-15] MEDS ORDERED: LIDOCAINE 2% 100MG/5ML SDV (FOR ANES.) As Ordered ONE (10:18)
[2023-09-15] MEDS ORDERED: propofoL 200 MG/20 ML VIAL As Ordered ONE (10:18)
[2023-09-15] MEDS ORDERED: ONDANSETRON 4MG 2ML VIAL As Ordered ONE (10:18)
[2023-09-15] MEDS ORDERED: ROCURONIUM BROMIDE 50MG/5ML VIAL As Ordered ONE (10:18)
[2023-09-15] MEDS ORDERED: MIDAZOLAM INJ 2MG/2ML VIAL As Ordered ONE (10:19)
[2023-09-15] MEDS ORDERED: fentaNYL 100 MCG/2 ML INJECTION As Ordered ONE (10:19)
[2023-09-15] MEDS: ceFAZolin SOD 2 GM in IV 1 EA IV ONE (10:32)
[2023-09-15] MEDS ORDERED: ACETAMINOPHEN 1000MG 100ML IV BAG As Ordered ONE (11:09)
[2023-09-15] MEDS ORDERED: HYDROmorphone HCL 2MG/ML 1ML VIAL As Ordered ONE (11:52)
[2023-09-15] MEDS: METHYLENE BLUE 0.5% (5MG/ML) 10 ML AMP (PROVAYBLUE) As Ordered ONE (12:20)
[2023-09-15] MEDS ORDERED: SUGAMMADEX SODIUM 500 MG/5 ML VIAL (BRIDION) As Ordered ONE (12:49)
[2023-09-15] MEDS ORDERED: MORPHINE 4 MG/ML 1ML VIAL IV PRN (13:20)
[2023-09-15] MEDS ORDERED: PERCOCET 5MG/325MG TAB PO PRN ×2 (13:20)
[2023-09-15] MEDS ORDERED: fentaNYL 100 MCG/2 ML INJECTION IV PRN (13:20)
[2023-09-15] MEDS: LR 1,000 ML IV SCH (13:20)
[2023-09-15] MEDS ORDERED: COLA100C5 PO (13:24)
[2023-09-15] MEDS ORDERED: PERCOCET PO (13:24)
[2023-09-15] MEDS ORDERED: IBUP80TA PO (13:24)
[2023-09-15] MEDS: ONDANSETRON 4MG 2ML VIAL IV PRN ×2 (14:01→18:11)
[2023-09-15] MEDS: HYDROMORPHONE HCL 0.5 MG/ 0.5 ML SYRINGE IV PRN (14:26)
[2023-09-15] MEDS: oxyCODONE 5MG TAB PO PRN (14:26)
[2023-09-15 15:10] VITALS: BP 112/73; TEMP 97.2; O2SAT 94
[2023-09-15 15:40] VITALS: BP 112/78; TEMP 97.3; O2SAT 92
[2023-09-15 16:10] VITALS: BP 115/78; TEMP 97.3; O2SAT 94
[2023-09-15 17:10] VITALS: BP 112/76; TEMP 97.9; O2SAT 91
[2023-09-15 18:10] VITALS: BP 121/80; TEMP 97.3; O2SAT 98
[2023-09-15] MEDS: KETOROLAC 30 MG/ML 1ML VIAL IV SCH (18:15)
[2023-09-15 19:10] VITALS: BP 118/78; TEMP 97.3; O2SAT 98
[2023-09-15] MEDS ORDERED: DOCUSATE SODIUM 100MG CAPSULE PO SCH (21:00)
[2023-09-16] MEDS ORDERED: IBUPROFEN 800 MG TAB PO SCH (15:00)
== END 2023-09-15 20:34 | disposition home or self-care (01) ==
LOC: M SDC 09:42 → M ED INP 13:21 → UNDOADMOB 13:21 → M MSPAV 15:01 → M ED INP 15:01 → M MSPAV 15:01 → M SDC 20:34 → UNDODISOB 20:34
PROVIDERS: ATTEND Obstetrics & Gynecology
DX: N85.00 Endometrial hyperplasia, unspecified (principal); N73.6 Female pelvic peritoneal adhesions (postinfective); N83.8 Other noninflammatory disorders of ovary, fallopian tube and broad ligament; N93.9 Abnormal uterine and vaginal bleeding, unspecified; R10.2 Pelvic and perineal pain; R06.83 Snoring; Z85.850 Personal history of malignant neoplasm of thyroid; Z92.3 Personal history of irradiation; Z88.2 Allergy status to sulfonamides; Z91.040 Latex allergy status; Z79.899 Other long term (current) drug therapy; Z79.890 Hormone replacement therapy
CPT/HCPCS: 36415; 58571; 85027; 86850; 86900; 86901; 88307; J0131; J0665; J0690; J1100; J1170; J1885; J2250; J2405; J3010; Q9968; S2900

== ENCOUNTER → 2023-10-27 | Outpatient (CLI) | payer OTHER ==
[~2023-10-27] MED LIST changes: +ONDA-282 PO; -ONDA4TAB6 PO; +PROHANCE 279.3MG/ML 15ML VIAL As Ordered ONE; +PROHANCE 279.3MG/ML 5ML VIAL As Ordered ONE
== END ==
LOC: M RAD 15:03
PROVIDERS: ATTEND Psychiatry & Neurology Neurology
DX: C73 Malignant neoplasm of thyroid gland (principal); M50.31 Other cervical disc degeneration, high cervical region; R53.1 Weakness
CPT/HCPCS: 72156; A9576

== ENCOUNTER → 2024-01-25 | Outpatient (CLI) | payer OTHER ==
[~2024-01-25] MED LIST changes: +ISOVUE-370 76% 100ML VIAL As Ordered ONE; -PROHANCE 279.3MG/ML 15ML VIAL As Ordered ONE; -PROHANCE 279.3MG/ML 5ML VIAL As Ordered ONE
== END ==
LOC: M RAD 09:18
DX: C73 Malignant neoplasm of thyroid gland (principal); Z98.890 Other specified postprocedural states
CPT/HCPCS: 70491; Q9967

== ENCOUNTER → 2024-04-06 | Outpatient (REF) | payer OTHER ==
[~2024-04-06] MED LIST changes: -ISOVUE-370 76% 100ML VIAL As Ordered ONE
== END ==
LOC: M LAB REF 18:04
PROVIDERS: ATTEND Physician Assistant Medical
DX: B34.9 Viral infection, unspecified (principal)

== ENCOUNTER → 2024-06-11 | Outpatient (REF) | payer OTHER ==
[2024-06-11 14:48] LABS: BASO % 0.5 % (0.0-1.0); EOS # 0.2 10^3/uL (0.0-0.5); EOS % 2.9 % (0.0-3.0); HEMATOCRIT 36.1 % (36.0-47.0); HEMOGLOBIN 11.3 g/dl (12.0-15.5); LYMPH # 2.3 10^3/uL (1.5-5.0); MEAN CORPUSCULAR HEMOGLOBIN 29.5 pg (27.0-33.0); MEAN CORPUSCULAR HGB CONC 31.3 g/dl (32.0-36.5); MEAN CORPUSCULAR VOLUME 94.3 fl (80.0-96.0); MONO # 0.4 10^3/uL (0.0-0.8); NEUTROPHILS # 4.9 10^3/uL (1.5-8.5); NEUTROPHILS % 62.2 % (36.0-66.0); PLATELET COUNT, AUTOMATED 320 10^3/uL (150-450); RED BLOOD COUNT 3.83 10^6/uL (4.00-5.40); WHITE BLOOD COUNT 7.9 10^3/uL (4.0-10.0)
[2024-06-11 14:58] LABS: ALBUMIN 3.9 G/DL (3.2-5.2); BILIRUBIN,TOTAL 0.4 MG/DL (0.3-1.2); CALCIUM LEVEL 8.4 MG/DL (8.5-10.1); CHOLESTEROL RISK RATIO 5.95 (<5); CREATININE FOR GFR 1.3 MG/DL (0.55-1.30); GLOMERULAR FILTRATION RATE 51.6 (>60); HDL CHOLESTEROL 45.2 MG/DL (>40); LDL CHOLESTEROL 168.8 MG/DL (<100); MAGNESIUM LEVEL 1.8 MG/DL (1.8-2.4); NON-HDL-C 223.8 MG/DL; POTASSIUM SERUM 4.6 MMOL/L (3.5-5.1); TOTAL 25(OH) VITAMIN D 17.8 NG/ML (20.0-100.0); TOTAL PROTEIN 7.9 G/DL (5.7-8.2)
== END ==
LOC: M LAB REF 13:55
PROVIDERS: ATTEND Nurse Practitioner Family
DX: E66.01 Morbid (severe) obesity due to excess calories (principal); E55.9 Vitamin D deficiency, unspecified

== ENCOUNTER 2024-07-31 17:34 | Emergency (ER) | payer OTHER ==
[~2024-07-31] VITALS: Ht 149.9 cm; Wt 107.2 kg
[2024-07-31] MEDS ORDERED: VITA200032 (17:43)
[2024-07-31] MEDS ORDERED: ROSU5TAB49 (17:43)
[2024-07-31] MEDS ORDERED: AIMO70IN (17:44)
[2024-07-31 18:18] LABS: BASO % 0.2 % (0.0-1.0); EOS # 0.1 10^3/uL (0.0-0.5); EOS % 0.9 % (0.0-3.0); HEMATOCRIT 32.3 % (36.0-47.0); HEMOGLOBIN 10.3 g/dl (12.0-15.5); LYMPH # 1.6 10^3/uL (1.5-5.0); LYMPH % 14.8 % (24.0-44.0); MEAN CORPUSCULAR HEMOGLOBIN 29.8 pg (27.0-33.0); MEAN CORPUSCULAR HGB CONC 31.9 g/dl (32.0-36.5); MEAN CORPUSCULAR VOLUME 93.4 fl (80.0-96.0); MONO # 0.5 10^3/uL (0.0-0.8); MONO % 4.5 % (2.0-8.0); NEUTROPHILS # 8.7 10^3/uL (1.5-8.5); NEUTROPHILS % 79.2 % (36.0-66.0); PLATELET COUNT, AUTOMATED 249 10^3/uL (150-450); RED BLOOD COUNT 3.46 10^6/uL (4.00-5.40)
[2024-07-31 18:25] LABS: KETONE, URINE AUTO RFX NEGATIVE (NEGATIVE); MUCUS, URINE RFX SMALL (NEGATIVE); NITRITE, URINE AUTO RFX NEGATIVE (NEGATIVE); RBC, URINE AUTO RFX 4 /HPF (0-3); SQUAM EPITHELIAL CELL UR AURFX 4 /HPF (0-6); WBC, URINE AUTO RFX 9 /HPF (0-3)
[2024-07-31 18:27] LABS: LEUKOCYTE ESTERASE UR AUTO RFX 1+ (NEGATIVE)
[2024-07-31 18:57] LABS: ALBUMIN 4.1 G/DL (3.2-5.2); BILIRUBIN,DIRECT 0.2 MG/DL (<0.4); BILIRUBIN,TOTAL 0.6 MG/DL (0.3-1.2); CALCIUM LEVEL 7.4 MG/DL (8.5-10.1); CREATININE FOR GFR 1.33 MG/DL (0.55-1.30); GLOMERULAR FILTRATION RATE 55.5 (>60); POTASSIUM SERUM 4.3 MMOL/L (3.5-5.1); TOTAL PROTEIN 7.8 G/DL (5.7-8.2)
[2024-07-31 22:30] VITALS: BP 91/53; TEMP 97.6; O2SAT 97
== END 2024-07-31 23:14 | disposition left against medical advice (07) ==
LOC: M ED 17:34
DX: Z53.21 Procedure and treatment not carried out due to patient leaving prior to being seen by health care provider (principal)

== ENCOUNTER → 2024-10-29 | Outpatient (REF) | payer OTHER ==
[~2024-10-29] MED LIST changes: +AIMO70IN; +ROSU5TAB49; +VITA200032
[2024-10-29 15:06] LABS: ALT/SGPT 36.0 U/L (7.0-40); AST/SGOT 83.0 U/L (<34); CALCIUM LEVEL 8.0 MG/DL (8.5-10.1); CARBON DIOXIDE LEVEL 30.0 MMOL/L (20-31); CHLORIDE LEVEL 100.0 MMOL/L (98-107); CHOLESTEROL LEVEL 292.0 MG/DL (<200); CHOLESTEROL RISK RATIO 7.48 (<5); CREATININE FOR GFR 1.63 MG/DL (0.55-1.30); GLOMERULAR FILTRATION RATE 43.5 (>60); IRON (FE) 67.0 UG/DL (50-170); LDL CHOLESTEROL 209.6 MG/DL (<100); NON-HDL-C 253.0 MG/DL; PERCENT SATURATION 19.3 % (13.2-45.0); POTASSIUM SERUM 3.9 MMOL/L (3.5-5.1); SODIUM LEVEL 140.0 MMOL/L (136-145); TRIGLYCERIDES LEVEL 217.0 MG/DL (<150); VITAMIN B12 LEVEL 518.0 PG/ML (211-911)
== END ==
LOC: M LAB REF 12:01
PROVIDERS: ATTEND Nurse Practitioner Family
DX: E78.5 Hyperlipidemia, unspecified (principal); D64.9 Anemia, unspecified

== ENCOUNTER → 2024-11-26 | Outpatient (REF) | payer OTHER ==
[2024-11-26 18:57] LABS: IRON (FE) 58.0 UG/DL (50-170); PERCENT SATURATION 17.5 % (13.2-45.0)
== END ==
LOC: M LAB REF 18:05
PROVIDERS: ATTEND Internal Medicine Nephrology
DX: D50.9 Iron deficiency anemia, unspecified (principal); N39.0 Urinary tract infection, site not specified

== ENCOUNTER → 2024-12-12 | Outpatient (CLI) | payer OTHER | LOC: M RAD 07:34 | PROVIDERS: ATTEND Internal Medicine Nephrology | DX: Z53.9 Procedure and treatment not carried out, unspecified reason (principal) ==

== ENCOUNTER → 2024-12-12 | Outpatient (CLI) | payer OTHER | LOC: M RAD 07:36 | PROVIDERS: ATTEND Student in an Organized Health Care Education/Training Program | DX: R79.89 Other specified abnormal findings of blood chemistry (principal); K80.20 Calculus of gallbladder without cholecystitis without obstruction; K76.0 Fatty (change of) liver, not elsewhere classified ==

== ENCOUNTER → 2025-02-05 | Outpatient (REF) | payer OTHER ==
[2025-02-05 16:54] LABS: BASO # 0.1 10^3/uL (0.0-0.2); BASO % 0.6 % (0.0-1.0); EOS # 0.2 10^3/uL (0.0-0.5); EOS % 2.8 % (0.0-3.0); LYMPH # 2.3 10^3/uL (1.5-5.0); LYMPH % 26.7 % (24.0-44.0); MONO # 0.4 10^3/uL (0.0-0.8); MONO % 4.5 % (2.0-8.0); NEUTROPHILS # 5.6 10^3/uL (1.5-8.5); NEUTROPHILS % 64.6 % (36.0-66.0); PLATELET COUNT, AUTOMATED 252 10^3/uL (150-450)
[2025-02-05 16:58] LABS: ALT/SGPT 35.0 U/L (7.0-40); AST/SGOT 105.0 U/L (<34); CALCIUM LEVEL 8.2 MG/DL (8.5-10.1); CARBON DIOXIDE LEVEL 29.0 MMOL/L (20-31); CHLORIDE LEVEL 101.0 MMOL/L (98-107); CHOLESTEROL LEVEL 283.0 MG/DL (<200); CHOLESTEROL RISK RATIO 6.65 (<5); CREATININE FOR GFR 1.47 MG/DL (0.55-1.30); GLOMERULAR FILTRATION RATE 49.0 (>60); LDL CHOLESTEROL 196.1 MG/DL (<100); NON-HDL-C 240.5 MG/DL; POTASSIUM SERUM 4.4 MMOL/L (3.5-5.1); SODIUM LEVEL 142.0 MMOL/L (136-145); TRIGLYCERIDES LEVEL 222.0 MG/DL (<150)
== END ==
LOC: M LAB REF 16:23
PROVIDERS: ATTEND Student in an Organized Health Care Education/Training Program
DX: E78.5 Hyperlipidemia, unspecified (principal); D64.9 Anemia, unspecified; R94.4 Abnormal results of kidney function studies; K80.20 Calculus of gallbladder without cholecystitis without obstruction

== ENCOUNTER → 2025-03-10 | Outpatient (CLI) | payer OTHER ==
[~2025-03-10] MED LIST changes: +PROHANCE 279.3MG/ML 15ML VIAL ONE; +PROHANCE 279.3MG/ML 5ML VIAL ONE
== END ==
LOC: M PLAIMG 08:35
PROVIDERS: ATTEND Student in an Organized Health Care Education/Training Program
DX: K80.20 Calculus of gallbladder without cholecystitis without obstruction (principal)